=== PATIENT | female | born 1965 | race African-American/Black ===

== ENCOUNTER 2017-04-16 13:46 | Inpatient (IN) | payer BC ==
[2017-04-16 14:37] VITALS: BMI 19.3
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
[2017-04-16] MEDS ORDERED: MAGNESIUM CITRATE 300 ML BOTTLE PO PRN (16:30)
[2017-04-16] MEDS ORDERED: MAGNESIUM HYDROX 2400MG/30ML ORAL SUSPENSION 30 ML CUP PO PRN (16:30)
[2017-04-16] MEDS ORDERED: guaiFENesin/D-METHORPHAN HB 10 ML UNIT-DOSE CUPS PO PRN (16:30)
[2017-04-16] MEDS ORDERED: IBUPROFEN 400 MG TABLET (FP) PO PRN (16:30)
[2017-04-16] MEDS ORDERED: LOPERAMIDE HCL 2 MG CAPSULE PO PRN (16:30)
[2017-04-16] MEDS ORDERED: ACETAMINOPHEN 325 MG TABLET (FP) PO PRN (16:30)
[2017-04-16] MEDS ORDERED: MENTHOL/PHENOL 1 EACH UD MM PRN (16:30)
[2017-04-16] MEDS ORDERED: P-EPHED 60MG/TRIPROLIDI 2.5MG TABLET PO PRN (16:30)
[2017-04-16] MEDS ORDERED: MAG HYDROX/AL HYDROX/SIMETH 30 ML UNIT-DOSE CUP PO PRN (16:30)
[2017-04-16] MEDS ORDERED: ALBUTEROL SO4 2.5/IPRATROPIUM 0.5 INH SOL 3 ML VIAL.NEB. NEB ONE (16:33)
[2017-04-16] MEDS ORDERED: NICOTINE POLACRILEX 2 MG GUM BUC PRN (16:33)
[2017-04-16] MEDS ORDERED: ALBUTEROL SO4 18 GM HFA INHALER IH SCH (16:45)
[2017-04-16] MEDS ORDERED: diazePAM 5 MG TABLET PO ONE (17:30)
[2017-04-16] MEDS: NICOTINE 14 MG/24 HOURS TOPICAL PATCH TD SCH (19:23)
[2017-04-16] MEDS: LIDOCAINE 5% TOPICAL PATCH TP SCH (19:25)
[2017-04-16] MEDS ORDERED: PATIENT'S OWN MEDICATION (NON-FORMULARY) (Ipratropium Bromide [Atrovent Hfa] 12.9 GM) IH SCH (22:00)
[2017-04-16] MEDS: FLUTICASONE PROP 0.05% 16 GM NASAL SPRAY NS SCH (22:14)
[2017-04-16] MEDS: THIAMINE HCL 100 MG TABLET (FP) PO SCH (22:14)
[2017-04-16] MEDS: GABAPENTIN 100 MG CAPSULE (FP) PO SCH (22:14)
[2017-04-16] MEDS: CYCLOBENZAPRINE HCL 10 MG TABLET (FP) PO SCH (22:14)
[2017-04-16] MEDS: diazePAM 5 MG TABLET PO SCH (22:14)
[2017-04-16] MEDS: LIDOCAINE PATCH REMOVAL MC SCH (22:15)
[2017-04-16] MEDS: BUDESONIDE/FORMETEROL FUMARATE 160/4.5 mcg INHALER IH SCH (22:15)
[2017-04-17] MEDS: CYCLOBENZAPRINE HCL 10 MG TABLET (FP) PO SCH ×3 (06:32→22:06)
[2017-04-17] MEDS: diazePAM 5 MG TABLET PO SCH ×3 (06:32→22:08)
[2017-04-17] MEDS: GABAPENTIN 100 MG CAPSULE (FP) PO SCH ×3 (06:32→22:06)
--- NOTE | 2017-04-17 07:43 | CONSULT ---
[facility] Psychiatric Consult - Data Date of interview: 04/17/17 Admission source: [facility] Identifying data: This is 51 years old female with no psychiatric hospitalization history, history of Schizophrenia, intoxicated with: Alcohol, op[ioids, Cocaine and Nicotine Substance Abuse History: - Smoking Cessation. Smoking history: Current every day smoker. Have you smoked in the past 12 months: Yes. Aproximately how many cigarettes per day: 3. Hx Chewing Tobacco Use: No. Initiated information on smoking cessation: Yes. 'Breaking Loose' booklet given: 04/16/17. - Substance & Tx. History. Hx Alcohol Use: Yes. Hx Substance Use: Yes. Substance Use Type : Alcohol, Cocaine, Heroin, Marijuana, Opiates, Prescribed, Tranquilizers. Hx Substance Use Treatment: Yes (detox and rehab a). - Substances Abused. Alcohol. Route: Oral. Frequency: Daily. Amount used: FIFTH OF VODKA. Age of first use: 13. Date of Last Use: 04/16/17. Oxycontin. Route: Oral. Frequency: 1-2 times per week. Amount used: 30 MG. Age of first use: 36. Date of Last Use: 04/13/17. Crack. Route: Smoking. Frequency: Daily. Amount used: $100. Age of first use: 18. Date of Last Use: 04/16/17 Medical History: Weight lost, cachectic, HTN, LBP, GERD, COPD, Psychiatric History: Patient reports taking prior mark admission: Seroquel 25mg po bid,k as per computer carries Paranoid Schozphrenia, denies suicidal history , denies psychiatric hospitalization history Physical/Sexual Abuse/Trauma History: Unclear Additional Comment: Seroquel 25mg po bid Mental Status Exam - Mental Status Exam Alert and Oriented to: Person Cognitive Function: Fair Patient Appearance: Unkempt Mood: Anxious Affect: Constricted Patient Behavior: Guarded Speech Pattern: Delayed Voice Loudness: Mildly Soft/Quiet Thought Process: Circumstantial Thought Disorder: Being Controlled Hallucinations: Denies Suicidal Ideation: Denies Homicidal Ideation: Denies Insight/Judgement: Fair Sleep: Difficulty falling asleep Appetite: Weight loss Muscle strength/Tone: Mild Hypertonicity Gait/Station: Deferred Additional Comments: Seroquel 25mg po bid Psychiatric Findings - Problem List ([place] 1, 2,3) (1) Opioid abuse Current Visit: Yes Status: Acute (2) Drug-induced mood disorder Current Visit: No Status: Acute (3) Alcohol dependence in controlled environment Current Visit: No Status: Chronic (4) Alcohol dependence with uncomplicated withdrawal Current Visit: No Status: Chronic (5) Cocaine dependence Current Visit: No Status: Chronic Qualifiers: Substance use status: uncomplicated Qualified Code(s): F14.20 - Cocaine dependence, uncomplicated (6) Cocaine dependence, uncomplicated Current Visit: No Status: Chronic (7) Nicotine dependence Current Visit: No Status: Chronic Qualifiers: Nicotine product type: cigarettes Substance use status: uncomplicated Qualified Code(s): F17.210 - Nicotine dependence, cigarettes, uncomplicated (8) Opiate dependence Current Visit: No Status: Chronic Qualifiers: Substance use status: uncomplicated Qualified Code(s): F11.20 - Opioid dependence, uncomplicated (9) Schizophrenia Current Visit: No Status: Chronic - Initial Treatment Plan Initial Treatment Plan: Seroquel 25mg po bid
[2017-04-17] MEDS ORDERED: TIOTROPIUM BROMIDE 18 MCG/INH (DEVICE W/ 5 CAPSULES) IH SCH (10:00)
[2017-04-17] MEDS: LIDOCAINE 5% TOPICAL PATCH TP SCH (10:00)
[2017-04-17] MEDS: QUEtiapine FUMARATE 25 MG TABLET (FP) PO SCH ×2 (10:07→22:06)
[2017-04-17] MEDS: PRENATAL VITAMINS W/ FOLIC ACID TABLET (FP) PO SCH (10:07)
[2017-04-17] MEDS: RANITIDINE HCL 150 MG TABLET (FP) PO SCH (10:07)
[2017-04-17] MEDS: FLUTICASONE PROP 0.05% 16 GM NASAL SPRAY NS SCH ×2 (10:07→22:05)
[2017-04-17] MEDS: amLODIPine BESYLATE 5 MG TABLET (FP) PO SCH (10:07)
[2017-04-17] MEDS: NICOTINE 14 MG/24 HOURS TOPICAL PATCH TD SCH (10:08)
[2017-04-17] MEDS: BUDESONIDE/FORMETEROL FUMARATE 160/4.5 mcg INHALER IH SCH ×2 (10:08→22:06)
--- NOTE | 2017-04-17 10:32 | EKG ---
Test Reason : Blood Pressure : / mmHG Vent. Rate : 092 BPM Atrial Rate : 092 BPM P-R Int : 144 ms QRS Dur : 094 ms QT Int : 390 ms P-R-T Axes : 075 060 109 degrees QTc Int : 482 ms NORMAL SINUS RHYTHM POSSIBLE LEFT ATRIAL ENLARGEMENT LEFT VENTRICULAR HYPERTROPHY WITH REPOLARIZATION ABNORMALITY PROLONGED QT ABNORMAL ECG NO PREVIOUS ECGS AVAILABLE Confirmed by ASTER MONTOYA MD ([id number]) on 04/17/2017 10:31:49 AM Referred By: Idania García Confirmed By:ASTER MONTOYA MD
[2017-04-17 11:08] LABS: MCH 31.6 pg (25.7-33.7); MCHC 32.8 g/dl (32.0-36.0); MEAN CELL VOLUME 96.4 fl (80-96); MEAN PLT VOLUME 8.7 fl (7.5-11.1); PLATELET COUNT 245 K/MM3 (134-434); RDW 14.1 % (11.6-15.6); WHITE BLOOD COUNT 9.4 K/mm3 (4.0-10.0)
[2017-04-17 11:41] LABS: ALBUMIN 3.7 g/dl (3.4-5.0); ALK PHOS 56 U/L (45-117); ANION GAP 8 (8-16); BILIRUBIN,TOTAL 0.6 mg/dL (0.2-1.0); CALCIUM 9.1 mg/dL (8.5-10.1); CO2 27 mmol/L (21-32); CREATININE 1.3 mg/dL (0.55-1.02); GLUCOSE,RANDOM 72 mg/dL (74-106); SGOT/AST 15 U/L (15-37); SGPT/ALT 26 U/L (12-78); TOT PROT 7.2 g/dl (6.4-8.2)
[2017-04-17 17:20] LABS: URINE APPEARANCE CLEAR; URINE BILIRUBIN NEGATIVE (NEGATIVE); URINE BLOOD NEGATIVE (NEGATIVE); URINE COLOR YELLOW; URINE GLUCOSE (UA) NEGATIVE (NEGATIVE); URINE KETONE NEGATIVE (NEGATIVE); URINE LEUK ESTERASE NEGATIVE (NEGATIVE); URINE NITRITE NEGATIVE (NEGATIVE); URINE PROTEIN NEGATIVE (NEGATIVE); URINE UROBILINOGEN NEGATIVE mg/dL (0.2-1.0)
--- NOTE | 2017-04-17 17:38 | PN ---
S CIWA - CIWA Score Nausea/Vomitin Muscle Tremors: 3 Anxiety: 3 Agitation: 3 Paroxysmal Sweats: 3 Orientation: 0-Oriented Tacttile Disturbances: 1-Very Mild Itch/Numbness Auditory Disturbances: 0-None Visual Disturbances: 0-None Headache: 1-Very Mild CIWA-Ar Total Score: 17 S Progress Note (SOAP) Subjective: nausea, sweats, interrupted sleep, anxiety, tremors Objective: 04/17/17 17:37 Vital Signs - 24 hr 04/16/17 04/16/17 04/17/17 19:19 22:48 00:30 Temperature 98.1 F 99.9 F H Pulse Rate 100 H 100 H Respiratory 18 20 18 Rate Blood Pressure 120/75 135/73 04/17/17 04/17/17 04/17/17 03:30 06:08 10:02 Temperature 97.5 F L 97.7 F Pulse Rate 75 86 Respiratory 18 18 18 Rate Blood Pressure 140/76 127/78 04/17/17 15:16 Temperature 97.3 F L Pulse Rate 108 H Respiratory 18 Rate Blood Pressure 126/68 Laboratory Tests 04/17/17 04/17/17 04/17/17 06:00 06:00 11:30 WBC 9.4 RBC 4.55 Hgb 14.4 Hct 43.9 MCV 96.4 H MCH 31.6 MCHC 32.8 RDW 14.1 Plt Count 245 MPV 8.7 Sodium 141 Potassium 3.6 Chloride 106 Carbon Dioxide 27 Anion Gap 8 BUN 19 H Creatinine 1.3 H D Creat Clearance w eGFR 43.36 Random Glucose 72 L Calcium 9.1 Total Bilirubin 0.6 D AST 15 ALT 26 Alkaline Phosphatase 56 D Total Protein 7.2 Albumin 3.7 Urine Color Yellow Urine Appearance Clear Urine pH 6.0 Ur Specific [place] 1.023 Urine Protein Negative Urine Glucose (UA) Negative Urine Ketones Negative Urine Blood Negative Urine Nitrite Negative Urine Bilirubin Negative Urine Urobilinogen Negative Assessment: 04/17/17 17:37 withdrawwal sx, cton detox, fluids, encourage ambulation
[2017-04-17 19:29] LABS: URINE LEUK ESTERASE Negative (NEGATIVE)
[2017-04-17] MEDS: ALBUTEROL SO4 2.5/IPRATROPIUM 0.5 INH SOL 3 ML VIAL.NEB. NEB PRN (21:33)
[2017-04-17] MEDS: THIAMINE HCL 100 MG TABLET (FP) PO SCH (22:06)
[2017-04-17] MEDS: LIDOCAINE PATCH REMOVAL MC SCH (22:44)
[2017-04-18] MEDS: diazePAM 5 MG TABLET PO PRN ×2 (05:21→14:00)
[2017-04-18] MEDS: CYCLOBENZAPRINE HCL 10 MG TABLET (FP) PO SCH ×3 (05:21→22:12)
[2017-04-18] MEDS: GABAPENTIN 100 MG CAPSULE (FP) PO SCH ×3 (05:21→22:11)
[2017-04-18] MEDS ORDERED: hydrOXYzine PAMOATE 25 MG CAPSULE (FP) PO ONE (09:11)
[2017-04-18] MEDS: diazePAM 5 MG TABLET PO SCH ×2 (09:15→22:11)
[2017-04-18] MEDS: RANITIDINE HCL 150 MG TABLET (FP) PO SCH (10:04)
[2017-04-18] MEDS: amLODIPine BESYLATE 5 MG TABLET (FP) PO SCH (10:04)
[2017-04-18] MEDS: PRENATAL VITAMINS W/ FOLIC ACID TABLET (FP) PO SCH (10:04)
[2017-04-18] MEDS: LIDOCAINE 5% TOPICAL PATCH TP SCH (10:05)
[2017-04-18] MEDS: FLUTICASONE PROP 0.05% 16 GM NASAL SPRAY NS SCH ×2 (10:05→22:12)
[2017-04-18] MEDS: NICOTINE 14 MG/24 HOURS TOPICAL PATCH TD SCH (10:05)
[2017-04-18] MEDS: QUEtiapine FUMARATE 25 MG TABLET (FP) PO SCH ×2 (10:05→22:11)
[2017-04-18] MEDS: BUDESONIDE/FORMETEROL FUMARATE 160/4.5 mcg INHALER IH SCH ×2 (10:06→22:12)
--- NOTE | 2017-04-18 11:44 | PN ---
[facility] CIWA - CIWA Score Nausea/Vomitin-No Nausea/No Vomiting Muscle Tremors: 4-Moderate,w/Arms Extend Anxiety: 4-Mod. Anxious/Guarded Agitation: 4-Moderately Restless Paroxysmal Sweats: 3 Orientation: 0-Oriented Tacttile Disturbances: 0-None Auditory Disturbances: 0-None Visual Disturbances: 0-None Headache: 2-Mild CIWA-Ar Total Score: 17 S Progress Note (SOAP) Subjective: tremors, diarrhea x 3, agitation, interrupted sleep, anxiety, body aches Objective: 04/18/17 11:46 Vital Signs Temperature 97.0 F L 04/18/17 09:34 Pulse Rate 90 04/18/17 09:34 Respiratory Rate 16 04/18/17 09:34 Blood Pressure 116/83 04/18/17 09:34 O2 Sat by Pulse Oximetry (%) Laboratory Last Values WBC 9.4 K/mm3 (4.0-10.0) 04/17/17 06:00 RBC 4.55 M/mm3 (3.60-5.2) 04/17/17 06:00 Hgb 14.4 GM/dL (10.7-15.3) 04/17/17 06:00 Hct 43.9 % (32.4-45.2) 04/17/17 06:00 MCV 96.4 fl (80-96) H 04/17/17 06:00 MCH 31.6 pg (25.7-33.7) 04/17/17 06:00 MCHC 32.8 g/dl (32.0-36.0) 04/17/17 06:00 RDW 14.1 % (11.6-15.6) 04/17/17 06:00 Plt Count 245 K/MM3 (134-434) 04/17/17 06:00 MPV 8.7 fl (7.5-11.1) 04/17/17 06:00 Sodium 141 mmol/L (136-145) 04/17/17 06:00 Potassium 3.6 mmol/L (3.5-5.1) 04/17/17 06:00 Chloride 106 mmol/L (98-107) 04/17/17 06:00 Carbon Dioxide 27 mmol/L (21-32) 04/17/17 06:00 Anion Gap 8 (8-16) 04/17/17 06:00 BUN 19 mg/dL (7-18) H 04/17/17 06:00 Creatinine 1.3 mg/dL (0.55-1.02) H D 04/17/17 06:00 Creat Clearance w eGFR 43.36 (>60) 04/17/17 06:00 Random Glucose 72 mg/dL (74-106) L 04/17/17 06:00 Calcium 9.1 mg/dL (8.5-10.1) 04/17/17 06:00 Total Bilirubin 0.6 mg/dL (0.2-1.0) D 04/17/17 06:00 AST 15 U/L (15-37) 04/17/17 06:00 ALT 26 U/L (12-78) 04/17/17 06:00 Alkaline Phosphatase 56 U/L (45-117) D 04/17/17 06:00 Total Protein 7.2 g/dl (6.4-8.2) 04/17/17 06:00 Albumin 3.7 g/dl (3.4-5.0) 04/17/17 06:00 Urine Color Yellow 04/17/17 11:30 Urine Appearance Clear 04/17/17 11:30 Urine pH 6.0 (5.0-8.0) 04/17/17 11:30 Ur Specific [place] 1.023 (1.001-1.035) 04/17/17 11:30 Urine Protein Negative (NEGATIVE) 04/17/17 11:30 Urine Glucose (UA) Negative (NEGATIVE) 04/17/17 11:30 Urine Ketones Negative (NEGATIVE) 04/17/17 11:30 Urine Blood Negative (NEGATIVE) 04/17/17 11:30 Urine Nitrite Negative (NEGATIVE) 04/17/17 11:30 Urine Bilirubin Negative (NEGATIVE) 04/17/17 11:30 Urine Urobilinogen Negative mg/dL (0.2-1.0) 04/17/17 11:30 Ur Leukocyte Esterase Negative (NEGATIVE) 04/17/17 11:30 RPR Titer Nonreactive (NONREACTIVE) 04/17/17 06:00 labs reviewed. fluid hydration encouraged Assessment: 04/18/17 11:47 Withdrawal symptoms Plan: Continue detox
[2017-04-18] MEDS: ALBUTEROL SO4 2.5/IPRATROPIUM 0.5 INH SOL 3 ML VIAL.NEB. NEB PRN (20:40)
[2017-04-18] MEDS: THIAMINE HCL 100 MG TABLET (FP) PO SCH (22:11)
[2017-04-18] MEDS: LIDOCAINE PATCH REMOVAL MC SCH (22:12)
[2017-04-19] MEDS: GABAPENTIN 100 MG CAPSULE (FP) PO SCH ×3 (06:20→21:39)
[2017-04-19] MEDS: CYCLOBENZAPRINE HCL 10 MG TABLET (FP) PO SCH ×3 (06:20→21:39)
[2017-04-19] MEDS: diazePAM 5 MG TABLET PO PRN ×2 (06:21→14:54)
[2017-04-19] MEDS: ALBUTEROL SO4 2.5/IPRATROPIUM 0.5 INH SOL 3 ML VIAL.NEB. NEB PRN (06:45)
[2017-04-19] MEDS ORDERED: ALBUTEROL SO4 2.5/IPRATROPIUM 0.5 INH SOL 3 ML VIAL.NEB. NEB PRN (09:54)
--- NOTE | 2017-04-19 09:58 | PN ---
B[facility] Progress Note (SOAP) Subjective: Sweating,interrupted sleep,restless Objective: 04/19/17 09:57 Vital Signs - 8 hr 04/19/17 04/19/17 03:30 06:00 Temperature 97.5 F L Pulse Rate 80 Respiratory 18 16 Rate Blood Pressure 120/76 Laboratory Tests 04/17/17 04/17/17 04/17/17 06:00 06:00 06:00 WBC 9.4 RBC 4.55 Hgb 14.4 Hct 43.9 MCV 96.4 H MCH 31.6 MCHC 32.8 RDW 14.1 Plt Count 245 MPV 8.7 Sodium 141 Potassium 3.6 Chloride 106 Carbon Dioxide 27 Anion Gap 8 BUN 19 H Creatinine 1.3 H D Creat Clearance w eGFR 43.36 Random Glucose 72 L Calcium 9.1 Total Bilirubin 0.6 D AST 15 ALT 26 Alkaline Phosphatase 56 D Total Protein 7.2 Albumin 3.7 Urine Color Urine Appearance Urine pH Ur Specific [place] Urine Protein Urine Glucose (UA) Urine Ketones Urine Blood Urine Nitrite Urine Bilirubin Urine Urobilinogen Ur Leukocyte Esterase RPR Titer Nonreactive 04/17/17 11:30 WBC RBC Hgb Hct MCV MCH MCHC RDW Plt Count MPV Sodium Potassium Chloride Carbon Dioxide Anion Gap BUN Creatinine Creat Clearance w eGFR Random Glucose Calcium Total Bilirubin AST ALT Alkaline Phosphatase Total Protein Albumin Urine Color Yellow Urine Appearance Clear Urine pH 6.0 Ur Specific [place] 1.023 Urine Protein Negative Urine Glucose (UA) Negative Urine Ketones Negative Urine Blood Negative Urine Nitrite Negative Urine Bilirubin Negative Urine Urobilinogen Negative Ur Leukocyte Esterase Negative RPR Titer labs noted Assessment: 04/19/17 09:57 Withdrawal sx. Plan: Continue detox
[2017-04-19] MEDS: amLODIPine BESYLATE 5 MG TABLET (FP) PO SCH (10:11)
[2017-04-19] MEDS: RANITIDINE HCL 150 MG TABLET (FP) PO SCH (10:11)
[2017-04-19] MEDS: PRENATAL VITAMINS W/ FOLIC ACID TABLET (FP) PO SCH (10:11)
[2017-04-19] MEDS: NICOTINE 14 MG/24 HOURS TOPICAL PATCH TD SCH (10:11)
[2017-04-19] MEDS: diazePAM 5 MG TABLET PO SCH ×2 (10:11→21:40)
[2017-04-19] MEDS: QUEtiapine FUMARATE 25 MG TABLET (FP) PO SCH ×2 (10:11→21:39)
[2017-04-19] MEDS: BUDESONIDE/FORMETEROL FUMARATE 160/4.5 mcg INHALER IH SCH ×2 (10:12→21:41)
[2017-04-19] MEDS: FLUTICASONE PROP 0.05% 16 GM NASAL SPRAY NS SCH ×2 (10:12→21:42)
[2017-04-19] MEDS: ALBUTEROL SO4 2.5/IPRATROPIUM 0.5 INH SOL 3 ML VIAL.NEB. NEB SCH ×4 (11:31→21:43)
[2017-04-19] MEDS: LIDOCAINE 5% TOPICAL PATCH TP SCH (11:32)
[2017-04-19] MEDS: THIAMINE HCL 100 MG TABLET (FP) PO SCH (21:39)
[2017-04-19] MEDS: LIDOCAINE PATCH REMOVAL MC SCH (21:42)
[2017-04-19] MEDS ORDERED: IBUPROFEN 400 MG TABLET (FP) PO PRN (22:12)
[2017-04-20] MEDS: GABAPENTIN 100 MG CAPSULE (FP) PO SCH (07:05)
[2017-04-20] MEDS: CYCLOBENZAPRINE HCL 10 MG TABLET (FP) PO SCH (07:05)
[2017-04-20] MEDS: BUDESONIDE/FORMETEROL FUMARATE 160/4.5 mcg INHALER IH SCH (09:53)
[2017-04-20] MEDS: ALBUTEROL SO4 2.5/IPRATROPIUM 0.5 INH SOL 3 ML VIAL.NEB. NEB SCH (09:54)
[2017-04-20] MEDS ORDERED: diazePAM 5 MG TABLET PO SCH (10:00)
[2017-04-20] MEDS ORDERED: METHYL SALICYLATE/MENTHOL OINT 30 GM TUBE TP SCH (10:00)
[2017-04-20 10:21] VITALS: BP 143/79; PULSE 109; TEMP 97.9
[2017-04-20] MEDS: QUEtiapine FUMARATE 25 MG TABLET (FP) PO SCH (10:28)
[2017-04-20] MEDS: RANITIDINE HCL 150 MG TABLET (FP) PO SCH (10:28)
[2017-04-20] MEDS: PRENATAL VITAMINS W/ FOLIC ACID TABLET (FP) PO SCH (10:28)
[2017-04-20] MEDS: amLODIPine BESYLATE 5 MG TABLET (FP) PO SCH (10:28)
[2017-04-20] MEDS: FLUTICASONE PROP 0.05% 16 GM NASAL SPRAY NS SCH (10:30)
[2017-04-20] MEDS: LIDOCAINE 5% TOPICAL PATCH TP SCH (10:30)
[2017-04-20] MEDS: NICOTINE 14 MG/24 HOURS TOPICAL PATCH TD SCH (10:31)
--- NOTE | 2017-04-20 12:52 | DS ---
[facility] Detox Discharge Summary Admission Date: 04/16/17 Discharge Date: 04/20/17 - History Present History: Alcohol Dependence Pertinent Past History: COPD GERD - Physical Exam Results Vital Signs: Vital Signs Temperature 97.9 F 04/20/17 10:00 Pulse Rate 109 H 04/20/17 10:00 Respiratory Rate 16 04/20/17 10:00 Blood Pressure 143/79 04/20/17 10:00 O2 Sat by Pulse Oximetry (%) Pertinent Admission Physical Exam Findings: Withdrawal sx. Laboratory Tests 04/17/17 04/17/17 04/17/17 06:00 06:00 06:00 WBC 9.4 RBC 4.55 Hgb 14.4 Hct 43.9 MCV 96.4 H MCH 31.6 MCHC 32.8 RDW 14.1 Plt Count 245 MPV 8.7 Sodium 141 Potassium 3.6 Chloride 106 Carbon Dioxide 27 Anion Gap 8 BUN 19 H Creatinine 1.3 H D Creat Clearance w eGFR 43.36 Random Glucose 72 L Calcium 9.1 Total Bilirubin 0.6 D AST 15 ALT 26 Alkaline Phosphatase 56 D Total Protein 7.2 Albumin 3.7 Urine Color Urine Appearance Urine pH Ur Specific [place] Urine Protein Urine Glucose (UA) Urine Ketones Urine Blood Urine Nitrite Urine Bilirubin Urine Urobilinogen Ur Leukocyte Esterase RPR Titer Nonreactive 04/17/17 11:30 WBC RBC Hgb Hct MCV MCH MCHC RDW Plt Count MPV Sodium Potassium Chloride Carbon Dioxide Anion Gap BUN Creatinine Creat Clearance w eGFR Random Glucose Calcium Total Bilirubin AST ALT Alkaline Phosphatase Total Protein Albumin Urine Color Yellow Urine Appearance Clear Urine pH 6.0 Ur Specific [place] 1.023 Urine Protein Negative Urine Glucose (UA) Negative Urine Ketones Negative Urine Blood Negative Urine Nitrite Negative Urine Bilirubin Negative Urine Urobilinogen Negative Ur Leukocyte Esterase Negative RPR Titer labs noted - Treatment Hospital Course: Detox Protocol Followed, Detoxed Safely, Responded well, Discharged Condition Good, Rehab Referral Accepted Patient has Accepted a Rehab Referral to: [facility] - Medication Discharge Medications: Ambulatory Orders Ranitidine HCl [Heartburn Relief] 150 mg PO DAILY 12/31/15 Fluticasone Prop 0.05% Nasal [Flonase -] 1 - 2 spray NS BID 01/13/16 Tiotropium [place] [Spiriva] 1 inh PO DAILY 01/13/16 Quetiapine Fumarate [Seroquel -] 25 mg PO BID #60 tablet 04/17/17 Albuterol Sulfate Inhaler - [Ventolin HFA Inhaler -] 2 inh PO PRN #1 inhaler 12/27 Amlodipine Besylate [Norvasc -] 5 mg PO DAILY #30 tablet 04/19/17 Gabapentin [Neurontin -] 100 mg PO BID #60 capsule 04/19/17 Ipratropium [place] [Atrovent Hfa] 12.9 gm IH BID #1 [email or web address] 04/19/17 Mometasone/Formoterol [Dulera 200 Mcg/5 Mcg Inhaler] 2 inh IH BID #1 hfa.[email or web address] 04/19/17 Ranitidine [Zantac -] 150 mg PO DAILY #30 tablet 04/19/17 - Diagnosis (1) Drug-induced mood disorder Status: Acute (2) Alcohol dependence with uncomplicated withdrawal Status: Chronic (3) COPD (chronic obstructive pulmonary disease) Status: Chronic Qualifiers: COPD type: emphysema Emphysema type: other Qualified Code(s): J43.8 - Other emphysema (4) GERD (gastroesophageal reflux disease) Status: Chronic Qualifiers: Esophagitis presence: without esophagitis Qualified Code(s): K21.9 - Gastro -esophageal reflux disease without esophagitis - AMA Did Patient Leave Against Medical Advice: No
== END 2017-04-20 11:45 | disposition other institution (70) | DRG 773 ==
LOC: YASAS 13:46 → Y6N 17:03
PROVIDERS: ADMIT Internal Medicine; ATTEND Internal Medicine
PROC: HZ2ZZZZ Detoxification Services for Substance Abuse Treatment (ICD-10-PCS; principal; 2017-04-16)
DX: F11.23 Opioid dependence with withdrawal (principal); F10.230 Alcohol dependence with withdrawal, uncomplicated; F14.20 Cocaine dependence, uncomplicated; F17.210 Nicotine dependence, cigarettes, uncomplicated; F19.24 Other psychoactive substance dependence with psychoactive substance-induced mood disorder; F20.9 Schizophrenia, unspecified; J43.8 Other emphysema; K21.9 Gastro-esophageal reflux disease without esophagitis
CPT/HCPCS: 36415; 80053; 81003; 85027; 86593; 93005; 93010; 94640

== ENCOUNTER 2017-04-20 11:57 | Inpatient (IN) | payer BC ==
[2017-04-20] MEDS ORDERED: guaiFENesin/D-METHORPHAN HB 10 ML UNIT-DOSE CUPS PO PRN (16:14)
[2017-04-20] MEDS ORDERED: P-EPHED 60MG/TRIPROLIDI 2.5MG TABLET PO PRN (16:14)
[2017-04-20] MEDS ORDERED: MAGNESIUM HYDROX 2400MG/30ML ORAL SUSPENSION 30 ML CUP PO PRN (16:14)
[2017-04-20] MEDS ORDERED: LOPERAMIDE HCL 2 MG CAPSULE PO PRN (16:14)
[2017-04-20] MEDS ORDERED: MENTHOL/PHENOL 1 EACH UD MM PRN (16:14)
[2017-04-20] MEDS ORDERED: MAGNESIUM CITRATE 300 ML BOTTLE PO PRN (16:14)
[2017-04-20] MEDS ORDERED: MAG HYDROX/AL HYDROX/SIMETH 30 ML UNIT-DOSE CUP PO PRN (16:14)
--- NOTE | 2017-04-20 16:14 | HP ---
[facility] Rehab Assess/Revision - Admission History Admitted to Rehab from: [facility] [place] Date of Admission to Rehab: 04/20/17 - Vital signs Vital Signs: Last Vital Signs Temp Pulse Resp BP Pulse Ox 97.8 F 76 20 115/72 04/20/17 16:15 04/20/17 16:15 04/20/17 16:15 04/20/17 16:15 - Findings Detox History & Physical reviewed: Yes Concur with findings: Yes Inpatient Rehab Admission - Initial Determination Are CD services needed?: Yes Free of communicable disease: Yes Not in need of hospitalization: Yes - Rehab Admission Criteria Previous failed treatment: Yes Poor recovery environment: Yes Comorbidities: Yes Lacks judgement: Yes Patient is meeting Inpatient Rehab admission criteria:: Yes
[2017-04-20] MEDS ORDERED: ALBUTEROL SO4 18 GM HFA INHALER IH SCH (17:15)
[2017-04-20] MEDS: ALBUTEROL SO4 2.5/IPRATROPIUM 0.5 INH SOL 3 ML VIAL.NEB. NEB SCH ×2 (19:00→21:39)
[2017-04-20] MEDS: GABAPENTIN 100 MG CAPSULE (FP) PO SCH (21:41)
[2017-04-20] MEDS: THIAMINE HCL 100 MG TABLET (FP) PO SCH (21:41)
[2017-04-20] MEDS ORDERED: QUEtiapine FUMARATE 100 MG TABLET (FP) PO SCH (22:00)
[2017-04-20] MEDS: QUEtiapine FUMARATE 25 MG TABLET (FP) PO SCH (22:18)
[2017-04-20] MEDS: BUDESONIDE/FORMETEROL FUMARATE 160/4.5 mcg INHALER IH SCH (22:18)
[2017-04-21] MEDS: IBUPROFEN 400 MG TABLET (FP) PO PRN (00:27)
[2017-04-21] MEDS: ALBUTEROL SO4 2.5/IPRATROPIUM 0.5 INH SOL 3 ML VIAL.NEB. NEB PRN (08:45)
[2017-04-21] MEDS: BUDESONIDE/FORMETEROL FUMARATE 160/4.5 mcg INHALER IH SCH ×2 (09:58→21:36)
[2017-04-21] MEDS: RANITIDINE HCL 150 MG TABLET (FP) PO SCH (09:58)
[2017-04-21] MEDS: GABAPENTIN 100 MG CAPSULE (FP) PO SCH ×2 (09:58→21:36)
[2017-04-21] MEDS: QUEtiapine FUMARATE 25 MG TABLET (FP) PO SCH ×2 (09:58→21:37)
[2017-04-21] MEDS: ALBUTEROL SO4 2.5/IPRATROPIUM 0.5 INH SOL 3 ML VIAL.NEB. NEB SCH ×4 (09:59→21:37)
[2017-04-21] MEDS: NICOTINE 21 MG/24 HOURS TOPICAL PATCH TD SCH (09:59)
[2017-04-21] MEDS: PRENATAL VITAMINS W/ FOLIC ACID TABLET (FP) PO SCH (10:00)
[2017-04-21] MEDS: amLODIPine BESYLATE 5 MG TABLET (FP) PO SCH (10:00)
[2017-04-21] MEDS: ACETAMINOPHEN 325 MG TABLET (FP) PO PRN ×2 (14:12→21:39)
[2017-04-21] MEDS: TIOTROPIUM BROMIDE 18 MCG/INH (DEVICE W/ 5 CAPSULES) IH SCH (15:53)
[2017-04-21] MEDS: THIAMINE HCL 100 MG TABLET (FP) PO SCH (21:38)
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
[2017-04-22] MEDS: ALBUTEROL SO4 2.5/IPRATROPIUM 0.5 INH SOL 3 ML VIAL.NEB. NEB PRN (08:44)
[2017-04-22] MEDS: ALBUTEROL SO4 2.5/IPRATROPIUM 0.5 INH SOL 3 ML VIAL.NEB. NEB SCH (10:03)
[2017-04-22] MEDS: NICOTINE 21 MG/24 HOURS TOPICAL PATCH TD SCH (10:08)
[2017-04-22] MEDS: amLODIPine BESYLATE 5 MG TABLET (FP) PO SCH (10:08)
[2017-04-22] MEDS: GABAPENTIN 100 MG CAPSULE (FP) PO SCH ×2 (10:08→21:26)
[2017-04-22] MEDS: RANITIDINE HCL 150 MG TABLET (FP) PO SCH (10:08)
[2017-04-22] MEDS: TIOTROPIUM BROMIDE 18 MCG/INH (DEVICE W/ 5 CAPSULES) IH SCH (10:08)
[2017-04-22] MEDS: PRENATAL VITAMINS W/ FOLIC ACID TABLET (FP) PO SCH (10:08)
[2017-04-22] MEDS: BUDESONIDE/FORMETEROL FUMARATE 160/4.5 mcg INHALER IH SCH ×2 (10:09→21:26)
--- NOTE | 2017-04-22 15:56 | PN ---
BHS Progress Note (SOAP) Subjective: c/o thirst requesting water at bedside Objective: 04/22/17 15:55 Vital Signs - 24 hr 04/22/17 04/22/17 04/22/17 00:30 03:30 06:00 Temperature 98.3 F Pulse Rate 84 Respiratory 16 16 18 Rate Blood Pressure 143/85 04/22/17 09:30 Temperature Pulse Rate 96 H Respiratory Rate Blood Pressure 116/72 labs reveiwed with patient indicate dehydration Assessment: 04/22/17 15:55 dehydration 2/2 substance use pitcher ordered to be placed at bedside.
[2017-04-22] MEDS: THIAMINE HCL 100 MG TABLET (FP) PO SCH (21:26)
[2017-04-22] MEDS: QUEtiapine FUMARATE 50 MG TABLET PO SCH (21:27)
[2017-04-23] MEDS: ALBUTEROL SO4 2.5/IPRATROPIUM 0.5 INH SOL 3 ML VIAL.NEB. NEB PRN (07:13)
[2017-04-23] MEDS: BUDESONIDE/FORMETEROL FUMARATE 160/4.5 mcg INHALER IH SCH ×2 (10:04→22:03)
[2017-04-23] MEDS: RANITIDINE HCL 150 MG TABLET (FP) PO SCH (10:04)
[2017-04-23] MEDS: PRENATAL VITAMINS W/ FOLIC ACID TABLET (FP) PO SCH (10:04)
[2017-04-23] MEDS: GABAPENTIN 100 MG CAPSULE (FP) PO SCH ×2 (10:04→21:30)
[2017-04-23] MEDS: TIOTROPIUM BROMIDE 18 MCG/INH (DEVICE W/ 5 CAPSULES) IH SCH (10:05)
[2017-04-23] MEDS: amLODIPine BESYLATE 5 MG TABLET (FP) PO SCH (10:06)
[2017-04-23] MEDS: LIDOCAINE 5% TOPICAL PATCH TP SCH (10:06)
[2017-04-23] MEDS: NICOTINE 21 MG/24 HOURS TOPICAL PATCH TD SCH (10:06)
[2017-04-23] MEDS: ALBUTEROL SO4 2.5/IPRATROPIUM 0.5 INH SOL 3 ML VIAL.NEB. NEB SCH ×4 (10:07→21:30)
[2017-04-23] MEDS: THIAMINE HCL 100 MG TABLET (FP) PO SCH (21:30)
[2017-04-23] MEDS: QUEtiapine FUMARATE 50 MG TABLET PO SCH (21:30)
[2017-04-23] MEDS: LIDOCAINE PATCH REMOVAL MC SCH (21:31)
[2017-04-24] MEDS: ALBUTEROL SO4 2.5/IPRATROPIUM 0.5 INH SOL 3 ML VIAL.NEB. NEB PRN (07:08)
[2017-04-24] MEDS: NICOTINE 21 MG/24 HOURS TOPICAL PATCH TD SCH (10:13)
[2017-04-24] MEDS: amLODIPine BESYLATE 5 MG TABLET (FP) PO SCH (10:13)
[2017-04-24] MEDS: GABAPENTIN 100 MG CAPSULE (FP) PO SCH ×2 (10:13→21:30)
[2017-04-24] MEDS: LIDOCAINE 5% TOPICAL PATCH TP SCH (10:13)
[2017-04-24] MEDS: ALBUTEROL SO4 2.5/IPRATROPIUM 0.5 INH SOL 3 ML VIAL.NEB. NEB SCH ×5 (10:13→21:31)
[2017-04-24] MEDS: RANITIDINE HCL 150 MG TABLET (FP) PO SCH (10:13)
[2017-04-24] MEDS: PRENATAL VITAMINS W/ FOLIC ACID TABLET (FP) PO SCH (10:13)
[2017-04-24] MEDS: BUDESONIDE/FORMETEROL FUMARATE 160/4.5 mcg INHALER IH SCH ×2 (10:14→21:30)
[2017-04-24] MEDS: TIOTROPIUM BROMIDE 18 MCG/INH (DEVICE W/ 5 CAPSULES) IH SCH (10:14)
--- NOTE | 2017-04-24 11:15 | PN ---
Psychiatric Progress Note Vital Signs: Vital Signs Period Temp Pulse Resp BP Sys/Avila Pulse Ox Last 24 Hr 96.7 F 86-95 18-18 127-137/71-89 Date of Session: 04/24/17 Chief Complaint:: "I've been feeling anxious: HPI: Patient addressing Alcohol and Cocaine Dependence, Opoid Abuse comorbid with Nicotine Dependence, Paranoid Schizophrenia and Substance-induced Sleep Disorder ROS: Anemia, Asthma/COPD, GERD, HTN, chronic low back pain Current Medications: Active Medications Generic Name Dose Route Start Last Admin Trade Name Freq PRN Reason Stop Dose Admin Acetaminophen 650 mg 04/20/17 16:14 04/21/17 21:39 Tylenol - PO 650 mg Q4H PRN Administration FEVER OR PAIN Al Hydroxide/Mg Hydroxide 30 ml 04/20/17 16:14 Mylanta Oral Suspension - PO Q6H PRN DYSPEPSIA Albuterol Sulfate 2 puff 04/20/17 17:15 Ventolin Hfa Inhaler - IH PRN UDAY Albuterol/Ipratropium 1 amp 04/20/17 18:00 04/24/17 10:53 Duoneb - NEB 1 amp QID UDAY Administration Albuterol/Ipratropium 1 amp 04/20/17 17:17 04/24/17 07:08 Duoneb - NEB 1 amp Q4H PRN Administration SHORTNESS OF BREATH Amlodipine Besylate 5 mg 04/21/17 10:00 04/24/17 10:13 Norvasc - PO 5 mg DAILY UDYA Administration Budesonide/Formoterol Fumarate 1 puff 04/20/17 22:00 04/24/17 10:14 Symbicort 160/4.5mcg - IH 1 puff BID UDAY Administration Eucalyptus/Menthol/Phenol/Sorbitol 1 each 04/20/17 16:14 Cepastat Lozenge - MM Q4H PRN SORE THROAT Gabapentin 100 mg 04/20/17 22:00 04/24/17 10:13 Neurontin - PO 100 mg BID UDAY Administration Guaifenesin 10 ml 04/20/17 16:14 Robitussin Dm - PO Q6H PRN COUGH Hydroxyzine Pamoate 50 mg 04/24/17 11:10 Vistaril - PO Q4H PRN ANXIETY Ibuprofen 400 mg 04/20/17 16:14 04/21/17 00:27 Motrin - PO 400 mg Q6H PRN Administration PAIN Lidocaine 1 patch 04/23/17 10:00 04/24/17 10:13 Lidoderm Patch - TP 1 patch DAILY UDAY Administration Loperamide HCl 4 mg 04/20/17 16:14 Imodium - PO Q6H PRN DIARRHEA Magnesium Citrate 300 ml 04/20/17 16:14 Citroma - PO Q48H PRN CONSTIPATION Magnesium Hydroxide 30 ml 04/20/17 16:14 Milk Of Magnesia - PO DAILY PRN CONSTIPATION Miscellaneous 1 each 04/23/17 22:00 04/23/17 21:31 Lidoderm Patch Removal MC 1 each DAILY@2200 UDAY Administration Nicotine 14 mg 04/21/17 10:00 04/24/17 10:13 Nicoderm Patch - TD 14 mg DAILY UDAY Administration Nicotine Polacrilex 2 mg 04/20/17 16:14 Nicorette Gum - BUC Q2H PRN NICOTINE REPLACEMENT RX Multivit/Folic Acid/Iron 1 tab 04/21/17 10:00 04/24/17 10:13 Vitamins (Sjr) - PO 1 tab DAILY UDAY Administration Pseudoephedrine/Triprolidine 1 combo 04/20/17 16:14 Actifed - PO TID PRN NASAL CONGESTION Quetiapine Fumarate 150 mg 04/22/17 22:00 04/23/17 21:30 Seroquel - PO 150 mg HS UDAY Administration Ranitidine HCl 150 mg 04/21/17 10:00 04/24/17 10:13 Zantac - PO 150 mg DAILY UDAY Administration Thiamine HCl 100 mg 04/20/17 22:00 04/23/17 21:30 Vitamin B1 - PO 100 mg HS UDAY Administration Tiotropium [place] 1 puff 04/21/17 10:00 04/24/17 10:14 Spiriva - IH 1 puff DAILY UDAY Administration Medication(s) Change(s): Start Vistaril 50 mg po Q 6hrs prn for anxiety Current Side Effect: No Lab tests ordered: Yes Lab tests reviewed: Yes Provider note:: Patient reports that she has been feeling anxious and requests that medication be ordered for it. Anxiolytic properties as well as adverse- effects of Vistaril discussed with patient and she agreed to try it Total face to face time:: 15 Mental Status Exam - Mental Status Exam Alert and Oriented to: Time, Place, Person Cognitive Function: Fair Patient Appearance: Well Groomed Mood: Anxious Affect: Appropriate Patient Behavior: Cooperative Speech Pattern: Clear Voice Loudness: Normal Thought Process: Intact, Goal Oriented Thought Disorder: Not Present Hallucinations: Denies Homicidal Ideation: Denies Insight/Judgement: Fair Sleep: Well Appetite: Good Muscle strength/Tone: Normal Gait/Station: Normal Psychiatric Treatment Plan - Problem List (1) Alcohol dependence Current Visit: Yes (2) Cocaine dependence Current Visit: No Qualifiers: Substance use status: uncomplicated Qualified Code(s): F14.20 - Cocaine dependence, uncomplicated (3) Opioid abuse Current Visit: No (4) Nicotine dependence Current Visit: No Qualifiers: Nicotine product type: cigarettes Substance use status: uncomplicated Qualified Code(s): F17.210 - Nicotine dependence, cigarettes, uncomplicated (5) Paranoid schizophrenia Current Visit: Yes (6) Substance-induced sleep disorder Current Visit: Yes (7) Anemia Current Visit: No Qualifiers: Anemia type: iron deficiency Iron deficiency anemia type: inadequate dietary iron intake Qualified Code(s): D50.8 - Other iron deficiency anemias (8) Asthma Current Visit: No Qualifiers: Asthma severity: mild intermittent Asthma complication type: uncomplicated (9) COPD (chronic obstructive pulmonary disease) Current Visit: No Qualifiers: COPD type: emphysema Emphysema type: other Qualified Code(s): J43.8 - Other emphysema Comment: RECENT EXACERBATION TREATED IN ER, DISCHARGED WITH PREDNISON 40 MG PO X 3 DAYS (10) Chronic low back pain Current Visit: No (11) GERD (gastroesophageal reflux disease) Current Visit: No Qualifiers: Esophagitis presence: without esophagitis Qualified Code(s): K21.9 - Gastro -esophageal reflux disease without esophagitis (12) Hypertension Current Visit: No Qualifiers: Hypertension type: essential hypertension Qualified Code(s): I10 - Essential (primary) hypertension Comment: HYDROCHLOROTHIAZIDE 12.5 MG AMLODIPIN 5 MG (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 2) Monitor progress
[2017-04-24] MEDS: hydrOXYzine PAMOATE 50 MG CAPSULE (FP) PO PRN (17:05)
[2017-04-24] MEDS: QUEtiapine FUMARATE 50 MG TABLET PO SCH (21:29)
[2017-04-24] MEDS: THIAMINE HCL 100 MG TABLET (FP) PO SCH (21:29)
[2017-04-24] MEDS: LIDOCAINE PATCH REMOVAL MC SCH (21:32)
[2017-04-25] MEDS: BUDESONIDE/FORMETEROL FUMARATE 160/4.5 mcg INHALER IH SCH ×2 (10:08→21:25)
[2017-04-25] MEDS: amLODIPine BESYLATE 5 MG TABLET (FP) PO SCH (10:09)
[2017-04-25] MEDS ORDERED: PT OWN MED DRAWER 7, Y5N ONE ×2 (10:09→21:25)
[2017-04-25] MEDS: GABAPENTIN 100 MG CAPSULE (FP) PO SCH ×2 (10:09→21:23)
[2017-04-25] MEDS: PRENATAL VITAMINS W/ FOLIC ACID TABLET (FP) PO SCH (10:09)
[2017-04-25] MEDS: RANITIDINE HCL 150 MG TABLET (FP) PO SCH (10:09)
[2017-04-25] MEDS: LIDOCAINE 5% TOPICAL PATCH TP SCH (10:09)
[2017-04-25] MEDS: ALBUTEROL SO4 2.5/IPRATROPIUM 0.5 INH SOL 3 ML VIAL.NEB. NEB SCH (10:11)
[2017-04-25] MEDS: TIOTROPIUM BROMIDE 18 MCG/INH (DEVICE W/ 5 CAPSULES) IH SCH (10:12)
[2017-04-25] MEDS: NICOTINE 21 MG/24 HOURS TOPICAL PATCH TD SCH (10:12)
[2017-04-25] MEDS ORDERED: ALBUTEROL SO4 2.5/IPRATROPIUM 0.5 INH SOL 3 ML VIAL.NEB. NEB ONE (11:15)
[2017-04-25] MEDS ORDERED: predniSONE 20 MG TABLET (UD) PO ONE (11:35)
--- NOTE | 2017-04-25 12:00 | PN ---
BHS Progress Note Note: pt c/o that d/t her COPD she requires more respiratory tx to assist for her breathing. lungs assessed, CTA, O2 sats 94 on RA duoneb tx is ordered for breathing assist prn prednisone 20mg ordered daily for management as prescribed by her PMD albuterol inh neb tx ordered q4hrs prn pt agreed with treatment plan will reassess if required
[2017-04-25] MEDS: NICOTINE POLACRILEX 2 MG GUM BUC PRN (14:00)
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
[2017-04-25] MEDS: BUPRENORPHINE/NALOXONE 2 MG/0.5 MG FILM PACKET SL SCH (16:03)
[2017-04-25] MEDS: QUEtiapine FUMARATE 50 MG TABLET PO SCH (21:23)
[2017-04-25] MEDS: LIDOCAINE PATCH REMOVAL MC SCH (21:23)
[2017-04-25] MEDS: THIAMINE HCL 100 MG TABLET (FP) PO SCH (21:23)
[2017-04-26] MEDS: GABAPENTIN 100 MG CAPSULE (FP) PO SCH ×2 (09:55→21:43)
[2017-04-26] MEDS: PRENATAL VITAMINS W/ FOLIC ACID TABLET (FP) PO SCH (09:55)
[2017-04-26] MEDS: amLODIPine BESYLATE 5 MG TABLET (FP) PO SCH (09:55)
[2017-04-26] MEDS: predniSONE 20 MG TABLET (UD) PO SCH (09:55)
[2017-04-26] MEDS: RANITIDINE HCL 150 MG TABLET (FP) PO SCH (09:55)
[2017-04-26] MEDS: BUDESONIDE/FORMETEROL FUMARATE 160/4.5 mcg INHALER IH SCH ×2 (09:56→21:43)
[2017-04-26] MEDS: TIOTROPIUM BROMIDE 18 MCG/INH (DEVICE W/ 5 CAPSULES) IH SCH (09:56)
[2017-04-26] MEDS: NICOTINE 21 MG/24 HOURS TOPICAL PATCH TD SCH (09:57)
[2017-04-26] MEDS ORDERED: PT OWN MED DRAWER 7, Y5N ONE (09:57)
[2017-04-26] MEDS: BUPRENORPHINE/NALOXONE 2 MG/0.5 MG FILM PACKET SL SCH (09:57)
[2017-04-26] MEDS: LIDOCAINE 5% TOPICAL PATCH TP SCH (09:57)
[2017-04-26] MEDS: COLLOIDAL OATMEAL 1 BAR EACH TP PRN (10:53)
[2017-04-26] MEDS: VITAMINS A AND D TOPICAL OINTMENT 60 GM TUBE TP SCH ×2 (18:00→23:38)
[2017-04-26] MEDS: QUEtiapine FUMARATE 50 MG TABLET PO SCH (21:43)
[2017-04-26] MEDS: THIAMINE HCL 100 MG TABLET (FP) PO SCH (21:43)
[2017-04-26] MEDS: LIDOCAINE PATCH REMOVAL MC SCH (21:44)
[2017-04-27] MEDS: VITAMINS A AND D TOPICAL OINTMENT 60 GM TUBE TP SCH ×3 (06:51→17:34)
[2017-04-27] MEDS: ALBUTEROL SO4 0.083% IH SOL 2.5 MG/3 ML VIAL.NEB. NEB PRN (07:07)
[2017-04-27] MEDS: NICOTINE 21 MG/24 HOURS TOPICAL PATCH TD SCH (09:55)
[2017-04-27] MEDS: BUDESONIDE/FORMETEROL FUMARATE 160/4.5 mcg INHALER IH SCH ×2 (09:55→21:52)
[2017-04-27] MEDS: TIOTROPIUM BROMIDE 18 MCG/INH (DEVICE W/ 5 CAPSULES) IH SCH (09:55)
[2017-04-27] MEDS: PRENATAL VITAMINS W/ FOLIC ACID TABLET (FP) PO SCH (09:56)
[2017-04-27] MEDS: predniSONE 20 MG TABLET (UD) PO SCH (09:56)
[2017-04-27] MEDS: amLODIPine BESYLATE 5 MG TABLET (FP) PO SCH (09:56)
[2017-04-27] MEDS: GABAPENTIN 100 MG CAPSULE (FP) PO SCH ×2 (09:56→21:50)
[2017-04-27] MEDS: RANITIDINE HCL 150 MG TABLET (FP) PO SCH (09:56)
[2017-04-27] MEDS: BUPRENORPHINE/NALOXONE 2 MG/0.5 MG FILM PACKET SL SCH (09:56)
[2017-04-27] MEDS: LIDOCAINE 5% TOPICAL PATCH TP SCH (09:56)
[2017-04-27] MEDS: hydrOXYzine PAMOATE 50 MG CAPSULE (FP) PO PRN (17:33)
[2017-04-27] MEDS: QUEtiapine FUMARATE 50 MG TABLET PO SCH (21:50)
[2017-04-27] MEDS: THIAMINE HCL 100 MG TABLET (FP) PO SCH (21:50)
[2017-04-27] MEDS: LIDOCAINE PATCH REMOVAL MC SCH (21:51)
[2017-04-28] MEDS: VITAMINS A AND D TOPICAL OINTMENT 60 GM TUBE TP SCH ×5 (00:50→23:01)
[2017-04-28] MEDS: BUDESONIDE/FORMETEROL FUMARATE 160/4.5 mcg INHALER IH SCH ×2 (09:49→21:17)
[2017-04-28] MEDS: TIOTROPIUM BROMIDE 18 MCG/INH (DEVICE W/ 5 CAPSULES) IH SCH (09:49)
[2017-04-28] MEDS: PRENATAL VITAMINS W/ FOLIC ACID TABLET (FP) PO SCH (09:50)
[2017-04-28] MEDS: GABAPENTIN 100 MG CAPSULE (FP) PO SCH ×2 (09:50→21:16)
[2017-04-28] MEDS: predniSONE 20 MG TABLET (UD) PO SCH (09:50)
[2017-04-28] MEDS: amLODIPine BESYLATE 5 MG TABLET (FP) PO SCH (09:50)
[2017-04-28] MEDS: RANITIDINE HCL 150 MG TABLET (FP) PO SCH (09:50)
[2017-04-28] MEDS: COLLOIDAL OATMEAL 1 BAR EACH TP PRN (09:52)
[2017-04-28] MEDS: BUPRENORPHINE/NALOXONE 2 MG/0.5 MG FILM PACKET SL SCH (10:23)
[2017-04-28] MEDS: NICOTINE 21 MG/24 HOURS TOPICAL PATCH TD SCH (10:23)
[2017-04-28] MEDS: LIDOCAINE 5% TOPICAL PATCH TP SCH (10:23)
[2017-04-28] MEDS: QUEtiapine FUMARATE 50 MG TABLET PO SCH (21:16)
[2017-04-28] MEDS: LIDOCAINE PATCH REMOVAL MC SCH (21:16)
[2017-04-28] MEDS: hydrOXYzine PAMOATE 50 MG CAPSULE (FP) PO PRN (21:16)
[2017-04-28] MEDS: THIAMINE HCL 100 MG TABLET (FP) PO SCH (21:17)
[2017-04-29] MEDS: VITAMINS A AND D TOPICAL OINTMENT 60 GM TUBE TP SCH ×4 (06:00→23:39)
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
[2017-04-29] MEDS: TIOTROPIUM BROMIDE 18 MCG/INH (DEVICE W/ 5 CAPSULES) IH SCH (10:40)
[2017-04-29] MEDS: PRENATAL VITAMINS W/ FOLIC ACID TABLET (FP) PO SCH (10:41)
[2017-04-29] MEDS: BUPRENORPHINE/NALOXONE 2 MG/0.5 MG FILM PACKET SL SCH (10:44)
[2017-04-29] MEDS: NICOTINE 21 MG/24 HOURS TOPICAL PATCH TD SCH (10:44)
[2017-04-29] MEDS: GABAPENTIN 100 MG CAPSULE (FP) PO SCH ×2 (10:44→21:37)
[2017-04-29] MEDS: RANITIDINE HCL 150 MG TABLET (FP) PO SCH (10:44)
[2017-04-29] MEDS: LIDOCAINE 5% TOPICAL PATCH TP SCH (10:44)
[2017-04-29] MEDS: predniSONE 20 MG TABLET (UD) PO SCH (10:44)
[2017-04-29] MEDS: amLODIPine BESYLATE 5 MG TABLET (FP) PO SCH (11:30)
[2017-04-29] MEDS: BUDESONIDE/FORMETEROL FUMARATE 160/4.5 mcg INHALER IH SCH ×2 (11:30→21:37)
[2017-04-29] MEDS: NICOTINE 7 MG/24 HOURS TOPICAL PATCH TD SCH (15:06)
[2017-04-29] MEDS: QUEtiapine FUMARATE 50 MG TABLET PO SCH (21:37)
[2017-04-29] MEDS: THIAMINE HCL 100 MG TABLET (FP) PO SCH (21:37)
[2017-04-29] MEDS: hydrOXYzine PAMOATE 50 MG CAPSULE (FP) PO PRN (21:37)
[2017-04-29] MEDS: LIDOCAINE PATCH REMOVAL MC SCH (21:38)
[2017-04-29] MEDS: ACETAMINOPHEN 325 MG TABLET (FP) PO PRN (21:39)
[2017-04-29] MEDS: AMMONIUM LACTATE 12% LOTION 225 GM BOTTLE TP PRN (22:13)
[2017-04-30] MEDS: VITAMINS A AND D TOPICAL OINTMENT 60 GM TUBE TP SCH ×3 (06:00→18:22)
[2017-04-30] MEDS: TIOTROPIUM BROMIDE 18 MCG/INH (DEVICE W/ 5 CAPSULES) IH SCH (09:43)
[2017-04-30] MEDS: NICOTINE 7 MG/24 HOURS TOPICAL PATCH TD SCH (09:43)
[2017-04-30] MEDS: BUDESONIDE/FORMETEROL FUMARATE 160/4.5 mcg INHALER IH SCH ×2 (09:43→21:49)
[2017-04-30] MEDS: BUPRENORPHINE/NALOXONE 2 MG/0.5 MG FILM PACKET SL SCH (09:43)
[2017-04-30] MEDS: amLODIPine BESYLATE 5 MG TABLET (FP) PO SCH (09:44)
[2017-04-30] MEDS: GABAPENTIN 100 MG CAPSULE (FP) PO SCH ×2 (09:44→21:47)
[2017-04-30] MEDS: predniSONE 20 MG TABLET (UD) PO SCH (09:44)
[2017-04-30] MEDS: PRENATAL VITAMINS W/ FOLIC ACID TABLET (FP) PO SCH (09:44)
[2017-04-30] MEDS: RANITIDINE HCL 150 MG TABLET (FP) PO SCH (09:44)
[2017-04-30] MEDS: LIDOCAINE 5% TOPICAL PATCH TP SCH (09:45)
[2017-04-30] MEDS: ACETAMINOPHEN 325 MG TABLET (FP) PO PRN (20:20)
[2017-04-30] MEDS: hydrOXYzine PAMOATE 50 MG CAPSULE (FP) PO PRN (20:20)
[2017-04-30] MEDS: QUEtiapine FUMARATE 50 MG TABLET PO SCH (21:47)
[2017-04-30] MEDS: THIAMINE HCL 100 MG TABLET (FP) PO SCH (21:47)
[2017-04-30] MEDS: LIDOCAINE PATCH REMOVAL MC SCH (21:47)
[2017-05-01] MEDS: VITAMINS A AND D TOPICAL OINTMENT 60 GM TUBE TP SCH ×5 (06:00→23:22)
[2017-05-01] MEDS: COLLOIDAL OATMEAL 1 BAR EACH TP PRN (07:07)
[2017-05-01] MEDS: ALBUTEROL SO4 0.083% IH SOL 2.5 MG/3 ML VIAL.NEB. NEB PRN (07:08)
[2017-05-01] MEDS: BUPRENORPHINE/NALOXONE 2 MG/0.5 MG FILM PACKET SL SCH (09:56)
[2017-05-01] MEDS: TIOTROPIUM BROMIDE 18 MCG/INH (DEVICE W/ 5 CAPSULES) IH SCH (09:56)
[2017-05-01] MEDS: RANITIDINE HCL 150 MG TABLET (FP) PO SCH (09:56)
[2017-05-01] MEDS: NICOTINE 7 MG/24 HOURS TOPICAL PATCH TD SCH (09:56)
[2017-05-01] MEDS: amLODIPine BESYLATE 5 MG TABLET (FP) PO SCH (09:56)
[2017-05-01] MEDS: BUDESONIDE/FORMETEROL FUMARATE 160/4.5 mcg INHALER IH SCH ×2 (09:56→22:06)
[2017-05-01] MEDS: GABAPENTIN 100 MG CAPSULE (FP) PO SCH ×2 (09:56→22:06)
[2017-05-01] MEDS: predniSONE 20 MG TABLET (UD) PO SCH (09:56)
[2017-05-01] MEDS: PRENATAL VITAMINS W/ FOLIC ACID TABLET (FP) PO SCH (09:56)
[2017-05-01] MEDS: LIDOCAINE 5% TOPICAL PATCH TP SCH (09:57)
[2017-05-01] MEDS: IBUPROFEN 400 MG TABLET (FP) PO PRN (12:30)
[2017-05-01] MEDS: hydrOXYzine PAMOATE 50 MG CAPSULE (FP) PO PRN (12:55)
[2017-05-01] MEDS ORDERED: BUPRENORPHINE/NALOXONE 2 MG/0.5 MG FILM PACKET SL ONE (15:31)
[2017-05-01] MEDS ORDERED: BUPRENORPHINE/NALOXONE 2 MG/0.5 MG FILM PACKET SL SCH (15:31)
--- NOTE | 2017-05-01 15:45 | PN ---
BHS Progress Note (SOAP) Subjective: still c/o cravings, tremors, withdrawals would like to increase dose Objective: 05/01/17 15:43 Vital Signs - 24 hr 05/01/17 05/01/17 05/01/17 00:30 03:30 06:50 Temperature 98.1 F Pulse Rate 86 Respiratory 18 18 18 Rate Blood Pressure 142/84 05/01/17 09:30 Temperature Pulse Rate 95 H Respiratory Rate Blood Pressure 130/75 labs reviewed Assessment: 05/01/17 15:43 patient has an appt post discharge, will increase dose to 4mg daily, can have an extra 2mg today for total dose today of 4mg, cont to adjust upwards until patien t is comfortable without cravings.
[2017-05-01] MEDS: LIDOCAINE PATCH REMOVAL MC SCH (22:06)
[2017-05-01] MEDS: QUEtiapine FUMARATE 50 MG TABLET PO SCH (22:08)
[2017-05-01] MEDS: THIAMINE HCL 100 MG TABLET (FP) PO SCH (22:08)
[2017-05-02] MEDS: VITAMINS A AND D TOPICAL OINTMENT 60 GM TUBE TP SCH ×3 (07:10→17:54)
[2017-05-02] MEDS: ALBUTEROL SO4 0.083% IH SOL 2.5 MG/3 ML VIAL.NEB. NEB PRN ×2 (08:08→14:02)
[2017-05-02] MEDS: BUPRENORPHINE/NALOXONE 2 MG/0.5 MG FILM PACKET SL SCH (09:55)
[2017-05-02] MEDS: BUDESONIDE/FORMETEROL FUMARATE 160/4.5 mcg INHALER IH SCH ×2 (09:55→22:23)
[2017-05-02] MEDS: TIOTROPIUM BROMIDE 18 MCG/INH (DEVICE W/ 5 CAPSULES) IH SCH (09:55)
[2017-05-02] MEDS: LIDOCAINE 5% TOPICAL PATCH TP SCH (09:56)
[2017-05-02] MEDS: RANITIDINE HCL 150 MG TABLET (FP) PO SCH (09:56)
[2017-05-02] MEDS: amLODIPine BESYLATE 5 MG TABLET (FP) PO SCH (09:56)
[2017-05-02] MEDS: PRENATAL VITAMINS W/ FOLIC ACID TABLET (FP) PO SCH (09:56)
[2017-05-02] MEDS: predniSONE 20 MG TABLET (UD) PO SCH (09:56)
[2017-05-02] MEDS: NICOTINE 7 MG/24 HOURS TOPICAL PATCH TD SCH (09:56)
[2017-05-02] MEDS: GABAPENTIN 100 MG CAPSULE (FP) PO SCH ×2 (09:56→22:22)
[2017-05-02] MEDS: hydrOXYzine PAMOATE 50 MG CAPSULE (FP) PO PRN ×2 (16:33→22:21)
[2017-05-02] MEDS: QUEtiapine FUMARATE 50 MG TABLET PO SCH (22:21)
[2017-05-02] MEDS: LIDOCAINE PATCH REMOVAL MC SCH (22:22)
[2017-05-02] MEDS: THIAMINE HCL 100 MG TABLET (FP) PO SCH (22:22)
[2017-05-03] MEDS: ACETAMINOPHEN 325 MG TABLET (FP) PO PRN (01:39)
[2017-05-03] MEDS: VITAMINS A AND D TOPICAL OINTMENT 60 GM TUBE TP SCH ×4 (06:00→18:05)
[2017-05-03] MEDS: ALBUTEROL SO4 0.083% IH SOL 2.5 MG/3 ML VIAL.NEB. NEB PRN (07:04)
[2017-05-03] MEDS: NICOTINE 7 MG/24 HOURS TOPICAL PATCH TD SCH (10:05)
[2017-05-03] MEDS: BUPRENORPHINE/NALOXONE 2 MG/0.5 MG FILM PACKET SL SCH (10:05)
[2017-05-03] MEDS: PRENATAL VITAMINS W/ FOLIC ACID TABLET (FP) PO SCH (10:05)
[2017-05-03] MEDS: LIDOCAINE 5% TOPICAL PATCH TP SCH (10:06)
[2017-05-03] MEDS: amLODIPine BESYLATE 5 MG TABLET (FP) PO SCH (10:06)
[2017-05-03] MEDS: predniSONE 20 MG TABLET (UD) PO SCH (10:06)
[2017-05-03] MEDS: BUDESONIDE/FORMETEROL FUMARATE 160/4.5 mcg INHALER IH SCH ×2 (10:06→21:22)
[2017-05-03] MEDS: RANITIDINE HCL 150 MG TABLET (FP) PO SCH (10:06)
[2017-05-03] MEDS: GABAPENTIN 100 MG CAPSULE (FP) PO SCH ×2 (10:06→21:23)
[2017-05-03] MEDS: TIOTROPIUM BROMIDE 18 MCG/INH (DEVICE W/ 5 CAPSULES) IH SCH (10:06)
[2017-05-03] MEDS: NICOTINE POLACRILEX 2 MG GUM BUC PRN (10:09)
[2017-05-03] MEDS: hydrOXYzine PAMOATE 50 MG CAPSULE (FP) PO PRN ×2 (17:59→21:23)
[2017-05-03] MEDS: THIAMINE HCL 100 MG TABLET (FP) PO SCH (21:23)
[2017-05-03] MEDS: QUEtiapine FUMARATE 50 MG TABLET PO SCH (21:23)
[2017-05-03] MEDS: LIDOCAINE PATCH REMOVAL MC SCH (21:58)
[2017-05-04] MEDS: AMMONIUM LACTATE 12% LOTION 225 GM BOTTLE TP PRN (06:34)
[2017-05-04] MEDS: VITAMINS A AND D TOPICAL OINTMENT 60 GM TUBE TP SCH ×4 (06:34→17:29)
[2017-05-04] MEDS: ALBUTEROL SO4 0.083% IH SOL 2.5 MG/3 ML VIAL.NEB. NEB PRN ×2 (06:48→14:19)
[2017-05-04] MEDS: BUDESONIDE/FORMETEROL FUMARATE 160/4.5 mcg INHALER IH SCH ×2 (09:57→21:48)
[2017-05-04] MEDS: BUPRENORPHINE/NALOXONE 2 MG/0.5 MG FILM PACKET SL SCH (09:57)
[2017-05-04] MEDS: predniSONE 20 MG TABLET (UD) PO SCH (09:57)
[2017-05-04] MEDS: amLODIPine BESYLATE 5 MG TABLET (FP) PO SCH (09:57)
[2017-05-04] MEDS: NICOTINE 7 MG/24 HOURS TOPICAL PATCH TD SCH (09:57)
[2017-05-04] MEDS: GABAPENTIN 100 MG CAPSULE (FP) PO SCH ×2 (09:57→21:45)
[2017-05-04] MEDS: LIDOCAINE 5% TOPICAL PATCH TP SCH (09:58)
[2017-05-04] MEDS: TIOTROPIUM BROMIDE 18 MCG/INH (DEVICE W/ 5 CAPSULES) IH SCH (09:58)
[2017-05-04] MEDS: PRENATAL VITAMINS W/ FOLIC ACID TABLET (FP) PO SCH (09:58)
[2017-05-04] MEDS: RANITIDINE HCL 150 MG TABLET (FP) PO SCH (09:58)
[2017-05-04] MEDS: hydrOXYzine PAMOATE 50 MG CAPSULE (FP) PO PRN ×2 (09:59→21:45)
[2017-05-04] MEDS: NICOTINE POLACRILEX 2 MG GUM BUC PRN (10:04)
[2017-05-04] MEDS: COLLOIDAL OATMEAL 1 BAR EACH TP PRN (15:35)
[2017-05-04] MEDS: LIDOCAINE PATCH REMOVAL MC SCH (21:44)
[2017-05-04] MEDS: THIAMINE HCL 100 MG TABLET (FP) PO SCH (21:45)
[2017-05-04] MEDS: QUEtiapine FUMARATE 50 MG TABLET PO SCH (21:46)
[2017-05-05] MEDS: VITAMINS A AND D TOPICAL OINTMENT 60 GM TUBE TP SCH ×4 (06:00→17:29)
[2017-05-05] MEDS: BUDESONIDE/FORMETEROL FUMARATE 160/4.5 mcg INHALER IH SCH ×2 (10:06→21:50)
[2017-05-05] MEDS: NICOTINE 7 MG/24 HOURS TOPICAL PATCH TD SCH (10:06)
[2017-05-05] MEDS: BUPRENORPHINE/NALOXONE 2 MG/0.5 MG FILM PACKET SL SCH (10:06)
[2017-05-05] MEDS: PRENATAL VITAMINS W/ FOLIC ACID TABLET (FP) PO SCH (10:06)
[2017-05-05] MEDS: TIOTROPIUM BROMIDE 18 MCG/INH (DEVICE W/ 5 CAPSULES) IH SCH (10:06)
[2017-05-05] MEDS: predniSONE 20 MG TABLET (UD) PO SCH (10:07)
[2017-05-05] MEDS: amLODIPine BESYLATE 5 MG TABLET (FP) PO SCH (10:07)
[2017-05-05] MEDS: GABAPENTIN 100 MG CAPSULE (FP) PO SCH ×2 (10:07→21:50)
[2017-05-05] MEDS: RANITIDINE HCL 150 MG TABLET (FP) PO SCH (10:07)
[2017-05-05] MEDS: LIDOCAINE 5% TOPICAL PATCH TP SCH (10:07)
[2017-05-05] MEDS: THIAMINE HCL 100 MG TABLET (FP) PO SCH (21:50)
[2017-05-05] MEDS: QUEtiapine FUMARATE 50 MG TABLET PO SCH (21:50)
[2017-05-05] MEDS: LIDOCAINE PATCH REMOVAL MC SCH (21:51)
[2017-05-06] MEDS: VITAMINS A AND D TOPICAL OINTMENT 60 GM TUBE TP SCH ×4 (00:15→18:30)
[2017-05-06] MEDS: amLODIPine BESYLATE 5 MG TABLET (FP) PO SCH (10:14)
[2017-05-06] MEDS: RANITIDINE HCL 150 MG TABLET (FP) PO SCH (10:14)
[2017-05-06] MEDS: predniSONE 20 MG TABLET (UD) PO SCH (10:14)
[2017-05-06] MEDS: BUPRENORPHINE/NALOXONE 2 MG/0.5 MG FILM PACKET SL SCH (10:15)
[2017-05-06] MEDS: BUDESONIDE/FORMETEROL FUMARATE 160/4.5 mcg INHALER IH SCH ×2 (10:15→22:30)
[2017-05-06] MEDS: TIOTROPIUM BROMIDE 18 MCG/INH (DEVICE W/ 5 CAPSULES) IH SCH (10:15)
[2017-05-06] MEDS: NICOTINE 7 MG/24 HOURS TOPICAL PATCH TD SCH (10:15)
[2017-05-06] MEDS: PRENATAL VITAMINS W/ FOLIC ACID TABLET (FP) PO SCH (10:15)
[2017-05-06] MEDS: GABAPENTIN 100 MG CAPSULE (FP) PO SCH ×2 (10:15→21:41)
[2017-05-06] MEDS: LIDOCAINE 5% TOPICAL PATCH TP SCH (10:18)
[2017-05-06] MEDS: ALBUTEROL SO4 0.083% IH SOL 2.5 MG/3 ML VIAL.NEB. NEB PRN (10:47)
[2017-05-06] MEDS: hydrOXYzine PAMOATE 50 MG CAPSULE (FP) PO PRN ×2 (17:23→21:43)
[2017-05-06] MEDS: THIAMINE HCL 100 MG TABLET (FP) PO SCH (21:41)
[2017-05-06] MEDS: QUEtiapine FUMARATE 50 MG TABLET PO SCH (21:41)
[2017-05-06] MEDS: LIDOCAINE PATCH REMOVAL MC SCH (22:30)
[2017-05-07] MEDS: VITAMINS A AND D TOPICAL OINTMENT 60 GM TUBE TP SCH ×4 (00:25→18:00)
[2017-05-07] MEDS: predniSONE 20 MG TABLET (UD) PO SCH (10:21)
[2017-05-07] MEDS: LIDOCAINE 5% TOPICAL PATCH TP SCH (10:21)
[2017-05-07] MEDS: TIOTROPIUM BROMIDE 18 MCG/INH (DEVICE W/ 5 CAPSULES) IH SCH (10:37)
[2017-05-07] MEDS: hydrOXYzine PAMOATE 50 MG CAPSULE (FP) PO PRN ×3 (10:38→23:00)
[2017-05-07] MEDS: PRENATAL VITAMINS W/ FOLIC ACID TABLET (FP) PO SCH (10:38)
[2017-05-07] MEDS: GABAPENTIN 100 MG CAPSULE (FP) PO SCH ×2 (10:38→21:39)
[2017-05-07] MEDS: amLODIPine BESYLATE 5 MG TABLET (FP) PO SCH (10:38)
[2017-05-07] MEDS: RANITIDINE HCL 150 MG TABLET (FP) PO SCH (10:38)
[2017-05-07] MEDS: NICOTINE 7 MG/24 HOURS TOPICAL PATCH TD SCH (10:39)
[2017-05-07] MEDS: BUDESONIDE/FORMETEROL FUMARATE 160/4.5 mcg INHALER IH SCH ×2 (10:39→21:40)
[2017-05-07] MEDS: BUPRENORPHINE/NALOXONE 2 MG/0.5 MG FILM PACKET SL SCH (10:39)
--- NOTE | 2017-05-07 15:13 | PN ---
Psychiatric Progress Note Vital Signs: Vital Signs Period Temp Pulse Resp BP Sys/Avila Pulse Ox Last 24 Hr 98.8 F 84-90 18-18 143-146/80-83 Date of Session: 05/07/17 Chief Complaint:: Discharge Note HPI: Patient addressing Alcohol and Cocaine Dependence , Opiod Abuse comorbid with Nicotine Dependence, Paranoid Schizophrenia and Substance-induced Sleep Disorder ROS: Anemia, Asthma, COPD, GERD, Chronic LBP, HTN wee medicall managed Current Medications: Active Medications Generic Name Dose Route Start Last Admin Trade Name Freq PRN Reason Stop Dose Admin Acetaminophen 650 mg 04/20/17 16:14 05/03/17 01:39 Tylenol - PO 650 mg Q4H PRN Administration FEVER OR PAIN Al Hydroxide/Mg Hydroxide 30 ml 04/20/17 16:14 Mylanta Oral Suspension - PO Q6H PRN DYSPEPSIA Albuterol Sulfate 2 puff 04/20/17 17:15 04/27/17 18:05 Ventolin Hfa Inhaler - IH 2 puff PRN UDAY Administration Amlodipine Besylate 5 mg 04/21/17 10:00 05/07/17 10:38 Norvasc - PO 5 mg DAILY UDAY Administration Budesonide/Formoterol Fumarate 1 puff 04/20/17 22:00 05/07/17 10:39 Symbicort 160/4.5mcg - IH Not Given BID UDAY Buprenorphine/Naloxone 2 each 05/02/17 10:00 05/07/17 10:39 Suboxone 2mg/0.5mg Sl Film - SL 2 each DAILY UDAY Administration Colloidal Oatmeal 1 applic 04/26/17 07:31 05/04/17 15:35 Aveeno Soap - TP 1 applic DAILY PRN Administration HYGEINE Eucalyptus/Menthol/Phenol/Sorbitol 1 each 04/20/17 16:14 Cepastat Lozenge - MM Q4H PRN SORE THROAT Gabapentin 100 mg 04/20/17 22:00 05/07/17 10:38 Neurontin - PO 100 mg BID UDAY Administration Guaifenesin 10 ml 04/20/17 16:14 Robitussin Dm - PO Q6H PRN COUGH Hydroxyzine Pamoate 50 mg 04/24/17 11:10 05/07/17 10:38 Vistaril - PO 50 mg Q4H PRN Administration ANXIETY Ibuprofen 400 mg 12/09/17 16:14 05/01/17 12:30 Motrin - PO 400 mg Q6H PRN Administration PAIN Lactic Acid 1 applic 04/29/17 14:53 05/04/17 06:34 Lac-Hydrin 12 TP 1 applic BID PRN Administration DRY SKIN Lidocaine 1 patch 04/23/17 10:00 05/07/17 10:21 Lidoderm Patch - TP Not Given DAILY UDAY Loperamide HCl 4 mg 04/20/17 16:14 Imodium - PO Q6H PRN DIARRHEA Magnesium Citrate 300 ml 04/20/17 16:14 Citroma - PO Q48H PRN CONSTIPATION Magnesium Hydroxide 30 ml 04/20/17 16:14 Milk Of Magnesia - PO DAILY PRN CONSTIPATION Miscellaneous 2 each 04/26/17 12:43 05/06/17 22:30 Lidoderm Patch Removal MC 2 each DAILY@2200 UDAY Administration Nicotine 7 mg 04/29/17 15:00 05/07/17 10:39 Nicoderm Patch - TD Not Given DAILY [facility] Nicotine Polacrilex 2 mg 04/20/17 16:14 05/04/17 10:04 Nicorette Gum - BUC 2 mg Q2H PRN Administration NICOTINE REPLACEMENT RX Prednisone 20 mg 04/26/17 10:00 05/07/17 10:21 Deltasone - PO Not Given DAILY [facility] Multivit/Folic Acid/Iron 1 tab 04/21/17 10:00 05/07/17 10:38 Vitamins (Sjr) - PO 1 tab DAILY UDAY Administration Pseudoephedrine/Triprolidine 1 combo 04/20/17 16:14 Actifed - PO TID PRN NASAL CONGESTION Quetiapine Fumarate 150 mg 04/22/17 22:00 05/06/17 21:41 Seroquel - PO 150 mg HS UDAY Administration Ranitidine HCl 150 mg 04/21/17 10:00 05/07/17 10:38 Zantac - PO 150 mg DAILY UDAY Administration Thiamine HCl 100 mg 04/20/17 22:00 05/06/17 21:41 Vitamin B1 - PO 100 mg HS UDAY Administration Tiotropium [place] 1 puff 04/21/17 10:00 05/07/17 10:37 Spiriva - IH 1 puff DAILY UDAY Administration Vitamin A/Vitamin D 1 applic 04/26/17 18:00 12/26/17 12:40 Vitamin A & D Top Oint - TP Not Given Q6HPO UDAY Current Side Effect: No Lab tests ordered: Yes Lab tests reviewed: Yes Provider note:: Patient will complete this program on 05/08/17. She has met her treatment goals and will continue to address her issues in outpatient treatment at [facility]. Told residential mortgage underwriter that from his participation in this program, she has learned the importance having a sober support network in order to maitain abstinence. She responded well to Seroquel 150 mg po HS. Script for 30 days supply of that medication will electronically be transmitted to [facility] in [place]. She is stable for discharge on 05/08/17 Total face to face time:: 35 Mental Status Exam - Mental Status Exam Alert and Oriented to: Time, Place, Person Cognitive Function: Fair Patient Appearance: Well Groomed Mood: Hopeful, Euthymic Affect: Appropriate Patient Behavior: Cooperative Speech Pattern: Clear Voice Loudness: Normal Thought Process: Intact, Goal Oriented Thought Disorder: Not Present Hallucinations: Denies Suicidal Ideation: Denies Insight/Judgement: Fair Sleep: Fair Appetite: Good Muscle strength/Tone: Normal Gait/Station: Normal Psychiatric Treatment Plan - Problem List (1) Alcohol dependence Current Visit: Yes (2) Cocaine dependence Current Visit: No Qualifiers: Substance use status: uncomplicated Qualified Code(s): F14.20 - Cocaine dependence, uncomplicated (3) Opioid abuse Current Visit: No (4) Nicotine dependence Current Visit: No Qualifiers: Nicotine product type: cigarettes Substance use status: uncomplicated Qualified Code(s): F17.210 - Nicotine dependence, cigarettes, uncomplicated (5) Paranoid schizophrenia Current Visit: Yes (6) Substance-induced sleep disorder Current Visit: Yes (7) Anemia Current Visit: No Qualifiers: Anemia type: iron deficiency Iron deficiency anemia type: inadequate dietary iron intake Qualified Code(s): D50.8 - Other iron deficiency anemias (8) Asthma Current Visit: No Qualifiers: Asthma severity: mild intermittent Asthma complication type: uncomplicated (9) COPD (chronic obstructive pulmonary disease) Current Visit: No Qualifiers: COPD type: emphysema Emphysema type: other Qualified Code(s): J43.8 - Other emphysema Comment: RECENT EXACERBATION TREATED IN ER, DISCHARGED WITH PREDNISON 40 MG PO X 3 DAYS (10) Chronic low back pain Current Visit: No (11) GERD (gastroesophageal reflux disease) Current Visit: No Qualifiers: Esophagitis presence: without esophagitis Qualified Code(s): K21.9 - Gastro -esophageal reflux disease without esophagitis (12) Hypertension Current Visit: No Qualifiers: Hypertension type: unspecified Qualified Code(s): I10 - Essential (primary ) hypertension Comment: HYDROCHLOROTHIAZIDE 12.5 MG AMLODIPIN 5 MG (13) Substance-induced anxiety disorder Current Visit: Yes Initial treatment plan: Patient will be discharged tomorrow and referred to [facility] services for outpatient treatment
[2017-05-07] MEDS: THIAMINE HCL 100 MG TABLET (FP) PO SCH (21:39)
[2017-05-07] MEDS: QUEtiapine FUMARATE 50 MG TABLET PO SCH (21:40)
[2017-05-07] MEDS: LIDOCAINE PATCH REMOVAL MC SCH (22:06)
[2017-05-08] MEDS: VITAMINS A AND D TOPICAL OINTMENT 60 GM TUBE TP SCH ×2 (00:14→06:56)
[2017-05-08] MEDS: hydrOXYzine PAMOATE 50 MG CAPSULE (FP) PO PRN (06:56)
[2017-05-08 07:00] VITALS: BP 139/71; PULSE 91; TEMP 98.5
[2017-05-08] MEDS: amLODIPine BESYLATE 5 MG TABLET (FP) PO SCH (09:30)
[2017-05-08] MEDS: PRENATAL VITAMINS W/ FOLIC ACID TABLET (FP) PO SCH (09:30)
[2017-05-08] MEDS: GABAPENTIN 100 MG CAPSULE (FP) PO SCH (09:30)
[2017-05-08] MEDS: RANITIDINE HCL 150 MG TABLET (FP) PO SCH (09:30)
[2017-05-08] MEDS: LIDOCAINE 5% TOPICAL PATCH TP SCH (09:31)
[2017-05-08] MEDS: NICOTINE 7 MG/24 HOURS TOPICAL PATCH TD SCH (09:31)
[2017-05-08] MEDS: TIOTROPIUM BROMIDE 18 MCG/INH (DEVICE W/ 5 CAPSULES) IH SCH (09:31)
[2017-05-08] MEDS: BUPRENORPHINE/NALOXONE 2 MG/0.5 MG FILM PACKET SL SCH (09:31)
[2017-05-08] MEDS: BUDESONIDE/FORMETEROL FUMARATE 160/4.5 mcg INHALER IH SCH (09:32)
[2017-05-08] MEDS: predniSONE 20 MG TABLET (UD) PO SCH (09:32)
[2017-05-08] MEDS ORDERED: PT OWN MED DRAWER 7, Y5N ONE (09:46)
== END 2017-05-08 09:55 | disposition home or self-care (01) | DRG 772 ==
LOC: YASAS 11:57 → Y3W 11:58 → UNDODISIN 04-29 06:40
PROVIDERS: ADMIT Psychiatry & Neurology Psychiatry; ATTEND Psychiatry & Neurology Psychiatry
PROC: HZ42ZZZ Group Counseling for Substance Abuse Treatment, Cognitive-Behavioral (ICD-10-PCS; principal; 2017-04-20)
DX: F10.20 Alcohol dependence, uncomplicated (principal); F14.20 Cocaine dependence, uncomplicated; F11.10 Opioid abuse, uncomplicated; F17.210 Nicotine dependence, cigarettes, uncomplicated; F20.0 Paranoid schizophrenia; F19.24 Other psychoactive substance dependence with psychoactive substance-induced mood disorder; F19.280 Other psychoactive substance dependence with psychoactive substance-induced anxiety disorder; F19.282 Other psychoactive substance dependence with psychoactive substance-induced sleep disorder; I10 Essential (primary) hypertension; D50.8 Other iron deficiency anemias; J45.20 Mild intermittent asthma, uncomplicated; J43.8 Other emphysema; M54.5 Low back pain; G89.29 Other chronic pain; K21.9 Gastro-esophageal reflux disease without esophagitis; E86.0 Dehydration
CPT/HCPCS: 94640

== ENCOUNTER 2017-04-29 06:55 | Emergency (ER) | payer BC ==
[2017-04-29 07:07] VITALS: BP 128/66; PULSE 88; TEMP 97.9; BMI 23.9
--- NOTE | 2017-04-29 07:32 | PDOC ---
History of Present Illness - General Chief Complaint: Blood Pressure Problem Stated Complaint: BLOOD PRESSURE PROBLEM Time Seen by Provider: 04/29/17 07:02 - History of Present Illness Initial Comments: 04/29/17 07:51 THe patient is a 52 year old female with a history of HTN, GERD, alcohol abuse, cocaine abuse, depression who presents from [facility] for evaluation of elevated blood pressure. The patient states that she has been in [facility] for 2 weeks for detox. She states that over the last evening she has been experiencing a lot of anxiety and dreams about her nephew as well as some lightheadedness. She states that her blood pressure was 168/108, however there was no order for her daily amlodipine and decided to present to the ED for evaluation due to concerns. She denies any headache, vision changes, lightheadedness, fevers, chills, SOB, chest pain, abdominal pain, or changes with urination or bowel movements. Past History - Past Medical History Allergies/Adverse Reactions: Allergies Allergy/AdvReac Type Severity Reaction Status Date / Time No Known Allergies Allergy Verified 04/29/17 07:04 Home Medications: Ambulatory Orders Fluticasone Prop 0.05% Nasal [Flonase -] 1 - 2 spray NS BID 01/13/16 Tiotropium [place] [Spiriva] 1 inh PO DAILY 01/13/16 Albuterol Sulfate Inhaler - [Ventolin HFA Inhaler -] 2 inh PO PRN #1 inhaler 12/27 Amlodipine Besylate [Norvasc -] 5 mg PO DAILY #30 tablet 04/19/17 Ranitidine [Zantac -] 150 mg PO DAILY #30 tablet 04/19/17 Acetaminophen [Pain Relief] 650 mg PO PRN 04/29/17 Albuterol 0.083% Nebulizer [place] [Ventolin 0.083%] 1 neb NEB Q4H 04/29/17 Budesonide/Formeterol Fumarate [SYMBICORT 160/4.5mcg -] 1 inh PO BID 04/29/17 Buprenorphine HCl/Naloxone HCl [Buprenorphn-Naloxn 2-0.5 mg Sl] 1 each SL DAILY 04/29/17 Colloidal Oatmeal [Aveeno Bath] 1 each TP PRN 04/29/17 Guaifenesin Dm [Robitussin Dm] 10 ml PO Q6H PRN 04/29/17 Hydroxyzine Pamoate [Vistaril -] 50 mg PO Q4H PRN 04/29/17 Ibuprofen 400 mg PO PRN 04/29/17 Lidocaine 5% Patch [Lidoderm Patch -] 1 patch TP DAILY 04/29/17 Loperamide HCl [Imodium -] 4 mg PO Q6H PRN 04/29/17 Magnesium Hydrox 2400MG/30Ml [Milk of Magnesia -] 30 ml PO ONCE PRN 04/29/17 Menthol/Phenol [Cepastat Lozenge -] 1 each MM Q4H PRN 04/29/17 P-Ephed 60Mg/Triprolidi 2.5MG [Actifed -] 1 combo PO PRN PRN 04/29/17 Prednisone [Deltasone -] 20 mg PO DAILY 04/29/17 Vitamins (Sjr) - 1 tab PO DAILY 04/29/17 Quetiapine Fumarate [Quetiapine Fumarate ER] 150 mg PO HS 04/29/17 Thiamine HCl [B-1] 100 mg PO HS 04/29/17 Vitamin A & D Top Oint - [Vitamin A & D] 1 applic TP Q6HPO 04/29/17 Anemia: Yes Asthma: No Cancer: No Cardiac Disorders: No CVA: No COPD: Yes CHF: No Diabetes: No GI Disorders: No Disorders: No HTN: Yes Hypercholesterolemia: No Kidney Stones: No Liver Disease: No Seizures: No Thyroid Disease: No - Surgical History Abdominal Surgery: No Appendectomy: No Cardiac Surgery: No Cholecystectomy: No Lung Surgery: No Neurologic Surgery: No Orthopedic Surgery: No - Reproductive History PID: No - Suicide/Smoking/Psychosocial Hx Smoking History: Never smoked Have you smoked in the past 12 months: No Number of Cigarettes Smoked Daily: 3 Information on smoking cessation initiated: No 'Breaking Loose' booklet given: 04/16/17 Hx Alcohol Use: No Drug/Substance Use Hx: No Substance Use Type: Alcohol, Cocaine, Opiates Hx Substance Use Treatment: Yes (2 previous inpt detox & one inpt rehab @ [facility]) Review of Systems - Review of Systems Comments:: 04/29/17 07:56 Constitutional: No fevers, chills, fatigue, malaise HEENT: No Rhinorrhea, nasal congestion, visual changes Cardiovascular: No chest pain, syncope, palpitations, lightheadedness Respiratory: No Cough, SOB, Gastrointestinal: No Abdominal pain, Nausea, Vomiting, Constipation, Diarrhea, Melena Genitourinary: No Dysuria, Frequency, Urgency, Hesitancy, Hematuria, Flank pain Musculoskeletal: No Myalgia, arthralgia Skin: No rashes Neurologic: No Headache, Dizziness, Numbness, Weakness, or Tingling Psychiatric: No Hallucinations. No SI or HI *Physical Exam - Vital Signs Last Vital Signs Temp Pulse Resp BP Pulse Ox 97.9 F 88 18 128/66 96 04/29/17 07:05 04/29/17 07:05 04/29/17 07:05 04/29/17 07:05 04/29/17 07:05 - Physical Exam Comments: 04/29/17 07:57 General Appearance: Nourished. No Apparent Distress HEENT: EOMI, WILLARD. No Pharyngeal Erythema, Tonsillar Exudate, Tonsillar Erythema Neck: No Cervical Lymphadenopathy Respiratory/Chest: Lungs Clear, Normal Breath Sounds. No Crackles, Rales, Rhonchi, Wheezing Cardiovascular: Regular Rhythm, Regular Rate. No Murmur, Gallops, Rubs Gastrointestinal/Abdominal: Normal Bowel Sounds, Soft. No Guarding, Rebound, Tenderness Musculoskeletal: No CVA Tenderness Extremity: Normal Capillary Refill Integumentary: Normal Color, Dry, Warm Neurologic: Fully Oriented, Alert, Normal Mood/Affect, Normal Response, Medical Decision Making - Medical Decision Making 04/29/17 07:58 THe patient is a 52 year old female with a history of HTN, GERD, alcohol abuse, cocaine abuse, depression who presents from [facility] for evaluation of elevated blood pressure. Patient's blood pressure is 128/66 here in the ED and she currently denies any complaints. It is unlikely the patient's reported elevated blood pressure is due to withdrawal symptoms given that the patient has been at the detox facility for 2 weeks as well as her physical exam. It is likely her blood pressure elevation was due to increased anxiety throughout the evening. We will give the patient a dose of her blood pressure medication here in the ED and feel comfortable sending the patient back to [facility]. We discussed the plan with the patient who voiced understanding and is agreeable. *DC/Admit/Observation/Transfer Diagnosis at time of Disposition: Hypertension Qualifiers: Hypertension type: unspecified Qualified Code(s): I10 - Essential (primary) hypertension - Discharge Dispostion Disposition: HOME Condition at time of disposition: Improved Admit: No - Referrals - Patient Instructions Printed Discharge Instructions: DI for High Blood Pressure, How to Monitor Your Blood Pressure at Home Additional Instructions: Please return to the ER if you experience concerning or worsening symptoms including headaches, chest pain, or difficulty breathing. You were seen in the ER for high blood pressure. We have given your blood pressure medication here in the ER. Please follow up with your primary care provider to discusses further management of your blood pressure. - Post Discharge Activity
[2017-04-29] MEDS ORDERED: amLODIPine BESYLATE 5 MG TABLET (FP) PO ONE (08:04)
--- NOTE | 2017-04-29 08:14 | PDOC ---
Attending Attestation - Resident Resident Name: Denny Smith - ED Attending Attestation I have performed the following: I have examined & evaluated the patient, The case was reviewed & discussed with the resident, I agree w/resident's findings & plan, Exceptions are as noted - HPI HPI: 04/29/17 08:01 52-year-old female from [facility] due to elevated blood pressure of 170 systolic in the setting of missing her nighttime amlodipine last night. Patient was admittedly anxious, denied any symptoms of end organ injury. - Physicial Exam PE: 04/29/17 08:14 blood pressure normalized at 128 systolic. Patient comfortable seated in stretcher without any complaints at this time Exam is normal - Medical Decision Making 04/29/17 08:15 Patient seen and evaluated with the resident. I agree with the overall evaluation, assessment, and management with the following summary of visit: 52-year-old female who requested transfer for blood pressure evaluation/ medication after she was reportedly unable to obtain it at [facility]. Pt feels fine, has no complaints, and BP normalized. will dose her usual amlodipine no indication for further workup or intervention at this time no evidence of intox/withdrawal can return to [facility] to complete treatment
[2017-04-29] MEDS ORDERED: amLODIPine BESYLATE 5 MG TABLET (FP) ONE (08:16)
== END 2017-04-29 09:06 | disposition home or self-care (01) ==
LOC: JER 06:55
DX: I10 Essential (primary) hypertension (principal); K21.9 Gastro-esophageal reflux disease without esophagitis; F10.10 Alcohol abuse, uncomplicated; F14.10 Cocaine abuse, uncomplicated; F32.9 Major depressive disorder, single episode, unspecified
CPT/HCPCS: 99282-25

== ENCOUNTER 2018-02-08 08:09 | Inpatient (IN) | payer OTHER ==
[2018-02-08 08:39] VITALS: BMI 21.2
--- NOTE | 2018-02-08 08:54 | HP ---
CIWA Score - CIWA Score Nausea/Vomitin Muscle Tremors: 3 Anxiety: 3 Agitation: 2 Paroxysmal Sweats: 1-Minimal Palms Moist Orientation: 0-Oriented Tacttile Disturbances: 1-Very Mild Itch/Numbness Auditory Disturbances: 1-Very Mild Visual Disturbances: 0-None Headache: 2-Mild CIWA-Ar Total Score: 15 Admission ROS BHS - HPI Chief Complaint: this 52 years old female with alcohol dependence,and cocaine,percocet abused, admitted in on 04/08/18 at [facility] for acute exacerbation of copd, discharge for detox 03/10/18 history of htn,copd, syncope alcohol related schizophrenia non compliance weight loss multiple admissions in detox but keep relapsing longest period of siobriety 8 years Allergies/Adverse Reactions: Allergies Allergy/AdvReac Type Severity Reaction Status Date / Time No Known Allergies Allergy Verified 02/08/18 08:43 History of Present Illness: this 52 years old female with alcohol and cocaine dependence and percocet abused for detox as mentioned above, refer from [facility] for alcohol detoxed as mentioned above multiple admissions in the past last treatment 04/16/17 to 04/20/17 detox and 04/20/17 to 05/08/17 rehab Exam Limitations: No Limitations - Ebola screening Have you traveled outside of the country in the last 21 days: No (N) Have you had contact with anyone from an Ebola affected area: No Have you been sick,other than usual withdrawal symptoms: No Do you have a fever: No - Review of Systems Constitutional: Loss of Appetite, Malaise, Night Sweats, Changes in sleep, Weakness, Unintentional Wgt. Loss EENT: reports: Tearing, Nose Congestion Respiratory: reports: No Symptoms reported, Productive cough (history of acute exacerbation of copd admitted at [facility] 05/08/18 to 05/10/18 on prednisone) Cardiac: reports: No Symptoms Reported GI: reports: Diarrhea, Nausea, Vomiting, Abdominal cramping : reports: No Symptoms Reported Musculoskeletal: reports: Back Pain, Muscle Pain Integumentary: reports: Dryness Neuro: reports: Headache, Tremors Endocrine: reports: No Symptoms Reported Hematology: reports: No Symptoms Reported Psychiatric: reports: No Sypmtoms Reported, Judgement Intact, Mood/Affect Appropiate, Orientated x3, Agitated, Anxious (schizophrenia) Patient History - Patient Medical History Hx Anemia: Yes (on iron daily) Hx Asthma: Yes Hx Chronic Obstructive Pulmonary Disease (COPD): Yes (on albutreol and symbicort ) Hx Cancer: No Hx Cardiac Disorders: No Hx Congestive Heart Failure: No Hx Hypertension: Yes (on medications) Hx Hypercholesterolemia: No Hx Pacemaker: No HX Cerebrovascular Accident: No Hx Seizures: No Hx Diabetes: No Hx Gastrointestinal Disorders: No Hx Liver Disease: No Hx Genitourinary Disorders: No Hx Sexually Transmitted Disorders: No Hx Renal Disease (ESRD): No Hx Thyroid Disease: No Hx Human Immunodeficiency Virus (HIV): No (last 04/28 negative) Hx Hepatitis C: No Hx Depression: Yes Hx Suicide Attempt: Yes (overdose 10/28) Hx Bipolar Disorder: No Hx Schizophrenia: Yes (no medications) Other Medical History: no suicidal,no homicidal - Patient Surgical History Past Surgical History: Yes Hx Neurologic Surgery: No Hx Cataract Extraction: No Hx Cardiac Surgery: No Hx Lung Surgery: No Hx Breast Surgery: No Hx Breast Biopsy: No Hx Abdominal Surgery: No Hx Appendectomy: No Hx Cholecystectomy: No Hx Genitourinary Surgery: No Hx Section: Yes (X2 last 25 years) Hx Orthopedic Surgery: No Hx Hysterectomy: No Anesthesia Reaction: No - PPD History Previous Implant?: Yes Documented Results: Negative w/proof Date: 04/18/17 Results: 0 MM PPD to be Administered?: No - Reproductive History Patient is a Female of Child Bearing Age (11 -55 yrs old): Yes Patient : No - Smoking Cessation Smoking history: Former smoker Have you smoked in the past 12 months: No Aproximately how many cigarettes per day: 3 If you are a former smoker, when did you quit?: 10/14/17 Hx Chewing Tobacco Use: No Initiated information on smoking cessation: Yes 'Breaking Loose' booklet given: 02/08/18 - Substance & Tx. History Hx Alcohol Use: Yes Hx Substance Use: Yes Substance Use Type: Alcohol, Cocaine Hx Substance Use Treatment: Yes ([facility] 04/16/17 to 04/20/17 ) - Substances Abused Alcohol Route: Oral Frequency: Daily Amount used: 1 PINT Age of first use: 16 Date of Last Use: 02/08/18 Cocaine Route: Smoking Frequency: Daily Amount used: $150-200 Age of first use: 18 Date of Last Use: 02/08/18 PERCOCET Route: Oral Frequency: Daily Amount used: 4 -5/325MG Age of first use: 46 Date of Last Use: 02/08/18 Family Disease History - Family Disease History Family Disease History: CA: Mother (liver) Admission Physical Exam S - Vital Signs Vital Signs: Vital Signs - 24 hr 02/08/18 08:37 Temperature 98.3 F Pulse Rate 84 Respiratory 18 Rate Blood Pressure 138/76 - Physical General Appearance: Yes: Moderate Distress, Tremorous, Irritable, Sweating, Anxious HEENTM: Yes: Normal ENT Inspection, WILLARD, Pharynx Normal Respiratory: Yes: Lungs Clear, Normal Breath Sounds, No Respiratory Distress Neck: Yes: Within Normal Limits, Supple, Trachea in good position Cardiology: Yes: Within Normal Limits, Regular Rhythm, Regular Rate, S1, S2 Abdominal: Yes: Within Normal Limits, Normal Bowel Sounds, Non Tender, Soft Genitourinary: Yes: Within Normal Limits Back: Yes: Muscle Spasm Musculoskeletal: Yes: full range of Motion, Back pain, Muscle Pain Extremities: Yes: Normal Range of Motion, Tremors Neurological: Yes: land appraiser II-XII NML intact, Alert, Motor Strength 5/5 Integumentary: Yes: Dry Lymphatic: Yes: Within Normal Limits - Diagnostic (1) Alcohol dependence with uncomplicated withdrawal Current Visit: No Status: Acute (2) Anemia Current Visit: No Status: Chronic Qualifiers: Anemia type: iron deficiency Iron deficiency anemia type: inadequate dietary iron intake Qualified Code(s): D50.8 - Other iron deficiency anemias (3) Asthma Current Visit: No Status: Chronic Qualifiers: Asthma severity: mild intermittent Asthma complication type: uncomplicated (4) COPD (chronic obstructive pulmonary disease) Current Visit: No Status: Chronic Qualifiers: COPD type: emphysema Emphysema type: other Qualified Code(s): J43.8 - Other emphysema Comment: RECENT EXACERBATION TREATED IN ER, DISCHARGED WITH PREDNISON 40 MG PO X 3 DAYS (5) Chronic low back pain Current Visit: No Status: Chronic (6) Cocaine dependence Current Visit: No Status: Chronic Qualifiers: Substance use status: uncomplicated Qualified Code(s): F14.20 - Cocaine dependence, uncomplicated (7) Hypertension Current Visit: No Status: Chronic Qualifiers: Hypertension type: unspecified Qualified Code(s): I10 - Essential (primary ) hypertension Comment: HYDROCHLOROTHIAZIDE 12.5 MG AMLODIPIN 5 MG (8) Nicotine dependence Current Visit: No Status: Chronic Qualifiers: Nicotine product type: cigarettes Substance use status: uncomplicated Qualified Code(s): F17.210 - Nicotine dependence, cigarettes, uncomplicated (9) Schizophrenia Current Visit: No Status: Chronic (10) Weight loss Current Visit: Yes Status: Acute (11) Acute bronchitis Current Visit: Yes Status: Acute Cleared for Admission BHS - Detox or Rehab S Level of Care: Medically Managed Detox Regimen/Protocol: Librium S Breath Alcohol Content Breath Alcohol Content: 0.25 Urine Pregancy Test - Result Urine Test Results: Negative- NO Line Present Urine Drug Screen - Results Drug Screen Negative: No Urine Drug Screen Results: ISACC-Cocaine
[2018-02-08] MEDS ORDERED: MAG HYDROX/AL HYDROX/SIMETH 30 ML UNIT-DOSE CUP PO PRN (09:16)
[2018-02-08] MEDS ORDERED: LOPERAMIDE HCL 2 MG CAPSULE PO PRN (09:16)
[2018-02-08] MEDS ORDERED: MAGNESIUM HYDROX 2400MG/30ML ORAL SUSPENSION 30 ML CUP PO PRN (09:16)
[2018-02-08] MEDS ORDERED: MAGNESIUM CITRATE 300 ML BOTTLE PO PRN (09:16)
[2018-02-08] MEDS ORDERED: P-EPHED 60MG/TRIPROLIDI 2.5MG TABLET PO PRN (09:16)
[2018-02-08] MEDS ORDERED: chlordiazePOXIDE HCL 25 MG CAPSULE PO PRN (09:16)
[2018-02-08] MEDS ORDERED: MENTHOL/PHENOL 1 EACH UD MM PRN (09:16)
[2018-02-08] MEDS ORDERED: ALBUTEROL SO4 8 GM HFA INHALER IH PRN (09:19)
[2018-02-08] MEDS ORDERED: ALBUTEROL SO4 2.5/IPRATROPIUM 0.5 INH SOL 3 ML VIAL.NEB. NEB PRN (09:22)
[2018-02-08] MEDS: FERROUS SO4 325 MG TABLET (FP) PO SCH (10:52)
[2018-02-08] MEDS: chlordiazePOXIDE HCL 25 MG CAPSULE PO SCH ×3 (10:52→22:45)
[2018-02-08] MEDS: LISINOPRIL 5 MG TABLET (FP) PO SCH (10:52)
[2018-02-08] MEDS: predniSONE 20 MG TABLET (UD) PO SCH (10:53)
[2018-02-08] MEDS: amLODIPine BESYLATE 5 MG TABLET (FP) PO SCH (10:53)
[2018-02-08] MEDS: PRENATAL VITAMINS W/ FOLIC ACID TABLET (FP) PO SCH (10:53)
[2018-02-08] MEDS: TIOTROPIUM BROMIDE 2.5 MCG (SPIRIVA) RESPIMAT INHALER IH SCH (14:09)
[2018-02-08] MEDS: BUDESONIDE/FORMETEROL FUMARATE 160/4.5 mcg INHALER IH SCH ×2 (14:09→22:45)
[2018-02-08] MEDS: AMOXICILLIN 500 MG CAPSULE (FP) PO SCH ×2 (14:12→22:44)
--- NOTE | 2018-02-08 16:04 | CONSULT ---
[facility] Psychiatric Consult - Data Date of interview: 02/08/18 Admission source: [facility] Identifying data: This is one of multiple psychiatric admissions to [facility] for this 52 y/o AA female self-referred for detoxification treatment (alcohol, crack/cocaine,opiate). Admitted to [address] [place] [address].Patient is single,a mother of two, domiciled,unemployed and supported by relatives. Substance Abuse History: Discussed with the patient in this session.Details in the current [facility] report as follows : Smoking history: Former smoker. Have you smoked in the past 12 months: No. Aproximately how many cigarettes per day: 3. If you are a former smoker, when did you quit?: 10/14/17. Hx Chewing Tobacco Use: No. Initiated information on smoking cessation: Yes. 'Breaking Loose' booklet given: 02/08/18. - Substance & Tx. History. Hx Alcohol Use: Yes. Hx Substance Use: Yes. Substance Use Type: Alcohol, Cocaine. Hx Substance Use Treatment: Yes ([facility] 04/16/17 to 04/20/17 ). - Substances Abused. Alcohol. Route: Oral. Frequency: Daily. Amount used: 1 PINT. Age of first use: 16. Date of Last Use: 02/08/18. Cocaine. Route: Smoking. Frequency: Daily. Amount used: $150-200. Age of first use: 18. Date of Last Use: 02/08/18. PERCOCET. Route: Oral. Frequency: Daily. Amount used: 4 -5/325MG. Age of first use: 46. Date of Last Use: 02/08/18 Medical History: Arthritis,anemia,chronic lumbar pain,hypertension,GERD, bronchial asthma and a history of two sections. Psychiatric History: Patient admits to a history of multiple psychiatric hospitalizations (in [place]) but none in recent years (last committed about 10 years ago). Onset of psychiatric disturbances dates back to age 16 ( persecutory delusions,auditory hallucinations).Diagnosed with Paranoid Schizophrenia.Ms Mejia reports past maintenance with quetiapine. However, she indicates, in this interview, that " haldol is my best medication,the one that really keeps me controlled and functioning ". Sporadic evaluations at local [facility] emergenj settings in past few months.Patient informs that she usually gets medications refills from primary care providers. States that she is known to the [facility] OPD clinic in the [place] where she currently sees a psychiatrist.Questionable historian in view of absence of pharmacy claims to corroborate self-report of sustained OPD care. Patient admits to a remote history of suicide attempts, " a few times " via overdose with medications. Physical/Sexual Abuse/Trauma History: Patient denies. Additional Comment: Urine Drug Screen Results: ISACC-Cocaine.Noted. Mental Status Exam - Mental Status Exam Alert and Oriented to: Time, Place, Person Cognitive Function: Good Patient Appearance: Well Groomed (short stature,petite,thin habitus) Mood: Withdrawn, Anxious, Hopeful Affect: Mood Congruent Patient Behavior: Fatigued, Appropriate, Cooperative Speech Pattern: Clear, Appropriate Voice Loudness: Normal Thought Process: Goal Oriented Thought Disorder: Not Present Hallucinations: Denies (none at time of this examination but heard a few days ago prior to this [facility] visit) Suicidal Ideation: Denies Homicidal Ideation: Denies Insight/Judgement: Fair (wants to get back on haloperidol + cogentin to prevent decompensation) Sleep: Poorly, Difficulty falling asleep Appetite: Fair, Weight loss Muscle strength/Tone: Normal Gait/Station: Normal Psychiatric Findings - Problem List ([place] 1, 2,3) (1) Alcohol dependence with uncomplicated withdrawal Current Visit: Yes Status: Acute (2) Opiate dependence Current Visit: Yes Status: Chronic Qualifiers: Substance use status: uncomplicated Qualified Code(s): F11.20 - Opioid dependence, uncomplicated Comment: Self-report.Substance not present in tox screen on this admission. (3) Cocaine dependence Current Visit: Yes Status: Acute Qualifiers: Substance use status: uncomplicated Qualified Code(s): F14.20 - Cocaine dependence, uncomplicated (4) Nicotine dependence Current Visit: Yes Status: Acute Qualifiers: Nicotine product type: cigarettes Substance use status: uncomplicated Qualified Code(s): F17.210 - Nicotine dependence, cigarettes, uncomplicated (5) Paranoid schizophrenia Current Visit: Yes Status: Chronic (6) Insomnia Current Visit: Yes Status: Acute (7) Non-compliance Current Visit: Yes Status: Chronic Comment: Neglects OPD care and medications. - Initial Treatment Plan Initial Treatment Plan: Psychoeducation.Sleep hygiene.Detoxification in progress.In response to the patient's wish to resume haloperidol, will initiate treatment with haldol 2 mg po hs + cogentin 0.5 mg po hs (patient insists on low doses).Side effects/benefits of both drugs are discussed with the patient.Made aware, in particular, of risk of extrapyramidal adverse effects, movement disorders,neuroleptic malignant syndrome and anticholinergic issues ( constipation,blurred visionurinary hesitancy).Ms Mejia willfully consented ( verbally) to this plan of care.Observation.
[2018-02-08] MEDS: hydrOXYzine PAMOATE 25 MG CAPSULE (FP) PO PRN (19:28)
[2018-02-08] MEDS: THIAMINE HCL 100 MG TABLET (FP) PO SCH (22:43)
[2018-02-08] MEDS: HALOPERIDOL 1 MG TABLET (FP) PO SCH (22:43)
[2018-02-08] MEDS: BENZTROPINE MESYLATE 1 MG TABLET (FP) PO SCH (22:44)
[2018-02-08] MEDS: guaiFENesin/D-METHORPHAN HB 10 ML UNIT-DOSE CUPS PO PRN (22:45)
[2018-02-08] MEDS: MELATONIN 5 MG TABLETS PO PRN (22:47)
[2018-02-09] MEDS: AMOXICILLIN 500 MG CAPSULE (FP) PO SCH ×3 (06:20→22:13)
[2018-02-09] MEDS: chlordiazePOXIDE HCL 25 MG CAPSULE PO SCH ×4 (06:21→22:13)
[2018-02-09] MEDS: amLODIPine BESYLATE 5 MG TABLET (FP) PO SCH (10:39)
[2018-02-09] MEDS: FERROUS SO4 325 MG TABLET (FP) PO SCH (10:39)
[2018-02-09] MEDS: LISINOPRIL 5 MG TABLET (FP) PO SCH (10:39)
[2018-02-09] MEDS: TIOTROPIUM BROMIDE 2.5 MCG (SPIRIVA) RESPIMAT INHALER IH SCH (10:40)
[2018-02-09] MEDS: predniSONE 20 MG TABLET (UD) PO SCH (10:40)
[2018-02-09] MEDS: BUDESONIDE/FORMETEROL FUMARATE 160/4.5 mcg INHALER IH SCH ×2 (10:40→22:12)
[2018-02-09] MEDS: PRENATAL VITAMINS W/ FOLIC ACID TABLET (FP) PO SCH (10:40)
[2018-02-09 11:14] LABS: HEMATOCRIT 39.2 % (32.4-45.2); HEMOGLOBIN 12.5 GM/dL (10.7-15.3); MCH 30.9 pg (25.7-33.7); MEAN CELL VOLUME 96.5 fl (80-96); MEAN PLT VOLUME 8.7 fl (7.5-11.1); PLATELET COUNT 226 K/MM3 (134-434); RBC 4.06 M/mm3 (3.60-5.2); WHITE BLOOD COUNT 9.7 K/mm3 (4.0-10.0)
[2018-02-09 11:26] LABS: ALBUMIN 2.8 g/dl (3.4-5.0); ALK PHOS 36 U/L (45-117); ANION GAP 7 MMOL/L (8-16); BILIRUBIN,TOTAL 0.3 mg/dL (0.2-1); BLOOD UREA NITROGEN 16 mg/dL (7-18); CALCIUM 8.9 mg/dL (8.5-10.1); CHLORIDE 106 mmol/L (98-107); CO2 29 mmol/L (21-32); CREATININE 0.6 mg/dL (0.55-1.3); GLUCOSE,RANDOM 66 mg/dL (74-106); POTASSIUM 3.9 mmol/L (3.5-5.1); SGOT/AST 12 U/L (15-37); SGPT/ALT 15 U/L (13-61); SODIUM 141 mmol/L (136-145); TOT PROT 5.7 g/dl (6.4-8.2)
--- NOTE | 2018-02-09 12:48 | PN ---
S CIWA - CIWA Score Nausea/Vomitin-Mild Nausea/No Vomiting Muscle Tremors: 3 Anxiety: 2 Agitation: 3 Paroxysmal Sweats: 1-Minimal Palms Moist Orientation: 0-Oriented Tacttile Disturbances: 1-Very Mild Itch/Numbness Auditory Disturbances: 0-None Visual Disturbances: 0-None Headache: 1-Very Mild CIWA-Ar Total Score: 12 BHS Progress Note (SOAP) Subjective: sweat tremor anxiety headache Objective: 02/09/18 12:47 Vital Signs Temperature 97.1 F L 02/09/18 10:00 Pulse Rate 74 02/09/18 10:00 Respiratory Rate 16 02/09/18 10:00 Blood Pressure 118/77 02/09/18 10:00 O2 Sat by Pulse Oximetry (%) Laboratory Last Values WBC 9.7 K/mm3 (4.0-10.0) 02/09/18 07:49 RBC 4.06 M/mm3 (3.60-5.2) 02/09/18 07:49 Hgb 12.5 GM/dL (10.7-15.3) 02/09/18 07:49 Hct 39.2 % (32.4-45.2) 02/09/18 07:49 MCV 96.5 fl (80-96) H 02/09/18 07:49 MCH 30.9 pg (25.7-33.7) 02/09/18 07:49 MCHC 32.0 g/dl (32.0-36.0) 02/09/18 07:49 RDW 14.0 % (11.6-15.6) 02/09/18 07:49 Plt Count 226 K/MM3 (134-434) 02/09/18 07:49 MPV 8.7 fl (7.5-11.1) 02/09/18 07:49 Sodium 141 mmol/L (136-145) 02/09/18 07:49 Potassium 3.9 mmol/L (3.5-5.1) 02/09/18 07:49 Chloride 106 mmol/L (98-107) 02/09/18 07:49 Carbon Dioxide 29 mmol/L (21-32) 02/09/18 07:49 Anion Gap 7 MMOL/L (8-16) L 02/09/18 07:49 BUN 16 mg/dL (7-18) 02/09/18 07:49 Creatinine 0.6 mg/dL (0.55-1.3) 02/09/18 07:49 Creat Clearance w eGFR > 60 (>60) 02/09/18 07:49 Random Glucose 66 mg/dL (74-106) L 02/09/18 07:49 Calcium 8.9 mg/dL (8.5-10.1) 02/09/18 07:49 Total Bilirubin 0.3 mg/dL (0.2-1) 02/09/18 07:49 AST 12 U/L (15-37) L 02/09/18 07:49 ALT 15 U/L (13-61) 02/09/18 07:49 Alkaline Phosphatase 36 U/L (45-117) L 02/09/18 07:49 Total Protein 5.7 g/dl (6.4-8.2) L 02/09/18 07:49 Albumin 2.8 g/dl (3.4-5.0) L 02/09/18 07:49 RPR Titer Nonreactive (NONREACTIVE) 02/09/18 07:49 lab noted Assessment: 02/09/18 12:47 withdrawal sx Plan: continue detox
[2018-02-09] MEDS: BENZTROPINE MESYLATE 1 MG TABLET (FP) PO SCH (22:12)
[2018-02-09] MEDS: HALOPERIDOL 1 MG TABLET (FP) PO SCH (22:12)
[2018-02-09] MEDS: THIAMINE HCL 100 MG TABLET (FP) PO SCH (22:13)
[2018-02-09] MEDS: guaiFENesin/D-METHORPHAN HB 10 ML UNIT-DOSE CUPS PO PRN (22:13)
[2018-02-09] MEDS: MELATONIN 5 MG TABLETS PO PRN (22:14)
[2018-02-10] MEDS: AMOXICILLIN 500 MG CAPSULE (FP) PO SCH ×3 (05:49→22:29)
[2018-02-10] MEDS: chlordiazePOXIDE HCL 25 MG CAPSULE PO SCH (05:49)
--- NOTE | 2018-02-10 10:17 | PN ---
Psychiatric Progress Note Vital Signs: Vital Signs Period Temp Pulse Resp BP Sys/Avila Pulse Ox Last 24 Hr 97.7 F-98.6 F 78-100 16-20 113-130/55-74 Date of Session: 02/10/18 Chief Complaint:: " Can i get an increase in haldol." HPI: Patient admitted to for alcohol,crack/cocaine,opiate. ROS: Arthritis,anemia,chronic lumbar pain,hypertension,GERD,bronchial asthma and a history of two sections. Current Medications: Active Medications Generic Name Dose Route Start Last Admin Trade Name Freq PRN Reason Stop Dose Admin Acetaminophen 650 mg 02/08/18 09:16 Tylenol - PO Q4H PRN FEVER Al Hydroxide/Mg Hydroxide 30 ml 02/08/18 09:16 Mylanta Oral Suspension - PO Q6H PRN DYSPEPSIA Albuterol Sulfate 2 puff 02/08/18 09:19 Ventolin Hfa Inhaler - IH Q4H PRN ASTHMA Albuterol/Ipratropium 1 amp 02/08/18 09:22 Duoneb - NEB Q6H PRN SHORTNESS OF BREATH Amlodipine Besylate 5 mg 02/08/18 10:00 02/09/18 10:39 Norvasc - PO 5 mg DAILY UDAY Administration Amoxicillin 500 mg 02/08/18 14:00 02/10/18 05:49 Amoxicillin - PO 500 mg TID UDAY Administration Benztropine Mesylate 0.5 mg 02/08/18 22:00 02/09/18 22:12 Cogentin - PO 0.5 mg HS UDAY Administration Budesonide/Formoterol Fumarate 2 puff 02/08/18 10:00 02/09/18 22:12 Symbicort 160/4.5mcg - IH 2 puff BID UDAY Administration Chlordiazepoxide HCl 15 mg 02/10/18 11:00 Librium - PO 02/11/18 05:01 [id number] UDAY Chlordiazepoxide HCl 25 mg 02/08/18 09:16 Librium - PO 02/11/18 09:15 Q4H PRN WITHDRAWAL(CONT SUBST) Chlordiazepoxide HCl 10 mg 02/11/18 11:00 Librium - PO 02/12/18 05:01 [id number]-UHB UDAY Eucalyptus/Menthol/Phenol/Sorbitol 1 each 02/08/18 09:16 Cepastat Lozenge - MM Q4H PRN SORE THROAT Ferrous Sulfate 325 mg 02/08/18 10:00 02/09/18 10:39 Feosol - PO 325 mg DAILY UDAY Administration Guaifenesin 10 ml 02/08/18 09:16 02/09/18 22:13 Robitussin Dm - PO 10 ml Q6H PRN Administration COUGH Haloperidol 2 mg 02/08/18 22:00 02/09/18 22:12 Haldol - PO 2 mg HS UDAY Administration Hydroxyzine Pamoate 25 mg 02/08/18 09:16 02/08/18 19:28 Vistaril - PO 25 mg Q4H PRN Administration AGITATION Ibuprofen 400 mg 02/08/18 09:16 Motrin - PO Q6H PRN PAIN LEVEL 4-6 Lisinopril 5 mg 02/08/18 10:00 02/09/18 10:39 Prinivil PO 5 mg DAILY UDAY Administration Loperamide HCl 4 mg 02/08/18 09:16 Imodium - PO Q6H PRN DIARRHEA Magnesium Citrate 300 ml 02/08/18 09:16 Citroma - PO Q48H PRN CONSTIPATION Magnesium Hydroxide 30 ml 02/08/18 09:16 Milk Of Magnesia - PO DAILY PRN CONSTIPATION Melatonin 5 mg 02/08/18 22:00 02/09/18 22:14 Melatonin PO 5 mg HS PRN Administration INSOMNIA Prednisone 20 mg 02/08/18 10:00 02/09/18 10:40 Deltasone - PO 02/13/18 10:00 20 mg DAILY UDAY Administration Multivit/Folic Acid/Iron 1 tab 02/08/18 10:00 02/09/18 10:40 Vitamins (Sjr) - PO 1 tab DAILY UDAY Administration Pseudoephedrine/Triprolidine 1 combo 02/08/18 09:16 Actifed - PO TID PRN NASAL CONGESTION Thiamine HCl 100 mg 02/08/18 22:00 02/09/18 22:13 Vitamin B1 - PO 100 mg HS UDAY Administration Tiotropium [place] 2 puff 02/08/18 10:00 02/09/18 10:40 Spiriva Respimat IH 2 puff DAILY UDAY Administration Medication(s) Change(s): Yes. Will increase haldol 2mg to 5mg qhs. Current Side Effect: No Lab tests ordered: No Lab tests reviewed: Yes Provider note:: Chart reviewed. Dr. Davenport note read and appreciated. Patient with a history of schizophrenia and nonadherence to medications. She was restarted on haldol 2mg on 02/08/18. She reports improved mood and decrease irritability. She is requesting an increase in haldol dose. States she has been on higher doses in the past. Will increase haldol to 5mg qhs and cogentin to 1mg qhs. She is made aware of the risk of extrapyramidal adverse effects, movement disorders,neuroleptic malignant syndrome. Verbal consent given. Total face to face time:: 25 Mental Status Exam - Mental Status Exam Alert and Oriented to: Time, Place, Person Cognitive Function: Good Patient Appearance: Well Groomed Mood: Euthymic Affect: Mood Congruent Patient Behavior: Appropriate, Cooperative Speech Pattern: Appropriate Voice Loudness: Normal Thought Process: Intact, Goal Oriented Thought Disorder: Not Present Hallucinations: Denies Suicidal Ideation: Denies Homicidal Ideation: Denies Insight/Judgement: Poor Sleep: Fair Muscle strength/Tone: Normal Gait/Station: Normal Psychiatric Treatment Plan - Problem List (1) Alcohol dependence with uncomplicated withdrawal Current Visit: Yes (2) Cocaine dependence Current Visit: Yes Qualifiers: Substance use status: uncomplicated Qualified Code(s): F14.20 - Cocaine dependence, uncomplicated (3) Insomnia Current Visit: Yes (4) Nicotine dependence Current Visit: Yes Qualifiers: Nicotine product type: cigarettes Substance use status: uncomplicated Qualified Code(s): F17.210 - Nicotine dependence, cigarettes, uncomplicated (5) Non-compliance Current Visit: Yes Comment: Neglects OPD care and medications. (6) Opiate dependence Current Visit: Yes Qualifiers: Substance use status: uncomplicated Qualified Code(s): F11.20 - Opioid dependence, uncomplicated Comment: Self-report.Substance not present in tox screen on this admission. (7) Paranoid schizophrenia Current Visit: Yes
[2018-02-10] MEDS: amLODIPine BESYLATE 5 MG TABLET (FP) PO SCH (10:39)
[2018-02-10] MEDS: BUDESONIDE/FORMETEROL FUMARATE 160/4.5 mcg INHALER IH SCH ×2 (10:39→22:53)
[2018-02-10] MEDS: LISINOPRIL 5 MG TABLET (FP) PO SCH (10:39)
[2018-02-10] MEDS: predniSONE 20 MG TABLET (UD) PO SCH (10:39)
[2018-02-10] MEDS: FERROUS SO4 325 MG TABLET (FP) PO SCH (10:39)
[2018-02-10] MEDS: chlordiazePOXIDE 5 MG CAPSULE PO SCH ×3 (10:40→22:28)
[2018-02-10] MEDS: PRENATAL VITAMINS W/ FOLIC ACID TABLET (FP) PO SCH (10:40)
[2018-02-10] MEDS: TIOTROPIUM BROMIDE 2.5 MCG (SPIRIVA) RESPIMAT INHALER IH SCH (10:40)
[2018-02-10] MEDS: ACETAMINOPHEN 325 MG TABLET (FP) PO PRN ×2 (10:40→14:17)
--- NOTE | 2018-02-10 12:08 | PN ---
S CIWA - CIWA Score Nausea/Vomitin-No Nausea/No Vomiting Muscle Tremors: 4-Moderate,w/Arms Extend Anxiety: 3 Agitation: 3 Paroxysmal Sweats: 2 Orientation: 0-Oriented Tacttile Disturbances: 0-None Auditory Disturbances: 0-None Visual Disturbances: 0-None Headache: 0-None Present CIWA-Ar Total Score: 12 [facility] Progress Note (SOAP) Subjective: sweats shakes interrupted sleep Objective: 02/10/18 12:04 Vital Signs Temperature 97.7 F 02/10/18 09:29 Pulse Rate 100 H 02/10/18 09:29 Respiratory Rate 18 02/10/18 09:29 Blood Pressure 119/55 L 02/10/18 09:29 O2 Sat by Pulse Oximetry (%) Laboratory Tests 02/09/18 02/09/18 02/09/18 07:49 07:49 07:49 WBC 9.7 RBC 4.06 Hgb 12.5 Hct 39.2 MCV 96.5 H MCH 30.9 MCHC 32.0 RDW 14.0 Plt Count 226 MPV 8.7 Sodium 141 Potassium 3.9 Chloride 106 Carbon Dioxide 29 Anion Gap 7 L BUN 16 Creatinine 0.6 Creat Clearance w eGFR > 60 Random Glucose 66 L Calcium 8.9 Total Bilirubin 0.3 AST 12 L ALT 15 Alkaline Phosphatase 36 L Total Protein 5.7 L Albumin 2.8 L RPR Titer Nonreactive rest of labs pending aaox3 ambulating no acute distress Assessment: 02/10/18 12:07 withdrawal sx Plan: continue detox increase fluids
[2018-02-10] MEDS: IBUPROFEN 400 MG TABLET (FP) PO PRN (18:49)
[2018-02-10] MEDS: guaiFENesin/D-METHORPHAN HB 10 ML UNIT-DOSE CUPS PO PRN (19:41)
[2018-02-10] MEDS: HALOPERIDOL 5 MG TABLET (FP) PO SCH (22:28)
[2018-02-10] MEDS: BENZTROPINE MESYLATE 1 MG TABLET (FP) PO SCH (22:29)
[2018-02-10] MEDS: THIAMINE HCL 100 MG TABLET (FP) PO SCH (22:54)
[2018-02-11] MEDS: chlordiazePOXIDE 5 MG CAPSULE PO SCH (06:00)
[2018-02-11] MEDS: AMOXICILLIN 500 MG CAPSULE (FP) PO SCH ×3 (06:00→22:08)
[2018-02-11] MEDS: TIOTROPIUM BROMIDE 2.5 MCG (SPIRIVA) RESPIMAT INHALER IH SCH (10:48)
[2018-02-11] MEDS: BUDESONIDE/FORMETEROL FUMARATE 160/4.5 mcg INHALER IH SCH ×2 (10:48→22:08)
[2018-02-11] MEDS: FERROUS SO4 325 MG TABLET (FP) PO SCH (10:49)
[2018-02-11] MEDS: chlordiazePOXIDE HCL 10 MG CAPSULE PO SCH ×3 (10:50→22:09)
[2018-02-11] MEDS: PRENATAL VITAMINS W/ FOLIC ACID TABLET (FP) PO SCH (10:50)
[2018-02-11] MEDS: predniSONE 20 MG TABLET (UD) PO SCH (10:50)
[2018-02-11] MEDS: amLODIPine BESYLATE 5 MG TABLET (FP) PO SCH (10:50)
[2018-02-11] MEDS: LISINOPRIL 5 MG TABLET (FP) PO SCH (10:51)
--- NOTE | 2018-02-11 11:09 | EKG ---
Test Reason : Blood Pressure : / mmHG Vent. Rate : 080 BPM Atrial Rate : 080 BPM P-R Int : 146 ms QRS Dur : 092 ms QT Int : 378 ms P-R-T Axes : 075 050 072 degrees QTc Int : 435 ms NORMAL SINUS RHYTHM VOLTAGE CRITERIA FOR LEFT VENTRICULAR HYPERTROPHY NONSPECIFIC ST ABNORMALITY ABNORMAL ECG Confirmed by Rommel Sarkar MD ([id number]) on 02/11/2018 11:09:43 AM Referred By: Confirmed By:Rommel Sarkar MD
[2018-02-11] MEDS ORDERED: LIDOCAINE 5% TOPICAL PATCH TP ONE (12:11)
--- NOTE | 2018-02-11 12:13 | PN ---
[facility] Progress Note (SOAP) Subjective: agitation body aches sweats Objective: 02/11/18 12:12 Vital Signs Temperature 97 F L 02/11/18 06:40 Pulse Rate 82 02/11/18 06:40 Respiratory Rate 16 02/11/18 06:40 Blood Pressure 129/77 02/11/18 06:40 O2 Sat by Pulse Oximetry (%) aaox3 ambulating no acute distress Assessment: 02/11/18 12:13 withdrawal sx Plan: continue detox lidocaine patch d/c in am
[2018-02-11] MEDS ORDERED: COLLOIDAL OATMEAL 1 BAR EACH TP PRN (15:56)
[2018-02-11] MEDS: hydrOXYzine PAMOATE 25 MG CAPSULE (FP) PO PRN (21:00)
[2018-02-11] MEDS ORDERED: LIDOCAINE PATCH REMOVAL MC SCH (22:00)
[2018-02-11] MEDS: BENZTROPINE MESYLATE 1 MG TABLET (FP) PO SCH (22:08)
[2018-02-11] MEDS: THIAMINE HCL 100 MG TABLET (FP) PO SCH (22:09)
[2018-02-11] MEDS: HALOPERIDOL 5 MG TABLET (FP) PO SCH (22:09)
[2018-02-11] MEDS: IBUPROFEN 400 MG TABLET (FP) PO PRN (23:41)
[2018-02-12] MEDS: chlordiazePOXIDE HCL 10 MG CAPSULE PO SCH (05:31)
[2018-02-12] MEDS: AMOXICILLIN 500 MG CAPSULE (FP) PO SCH ×2 (05:31→14:02)
--- NOTE | 2018-02-12 09:29 | DS ---
[facility] Detox Discharge Summary Admission Date: 02/08/18 Discharge Date: 02/12/18 - History Present History: Alcohol Dependence, Cocaine Dependence - Physical Exam Results Vital Signs: Vital Signs Temperature 97.9 F 02/12/18 09:15 Pulse Rate 88 02/12/18 09:15 Respiratory Rate 16 02/12/18 09:15 Blood Pressure 119/61 02/12/18 09:15 O2 Sat by Pulse Oximetry (%) - Treatment Hospital Course: Detox Protocol Followed, Detoxed Safely, Responded well, Discharged Condition Good, Rehab Referral Accepted - Medication Discharge Medications: Ambulatory Orders Albuterol Sulfate Inhaler - [Ventolin HFA Inhaler -] 2 inh PO PRN #1 inhaler Amlodipine Besylate [Norvasc -] 5 mg PO DAILY #30 tablet 05/08/17 Budesonide/Formeterol Fumarate [SYMBICORT 160/4.5mcg -] 1 puff IH BID #1 inhaler 05/08/17 Lisinopril 5 mg PO DAILY 02/08/18 - AMA Did Patient Leave Against Medical Advice: No (out patient rehab)
[2018-02-12] MEDS ORDERED: LIDOCAINE 5% TOPICAL PATCH TP SCH (10:00)
[2018-02-12] MEDS: predniSONE 20 MG TABLET (UD) PO SCH (10:48)
[2018-02-12] MEDS: PRENATAL VITAMINS W/ FOLIC ACID TABLET (FP) PO SCH (10:48)
[2018-02-12] MEDS: amLODIPine BESYLATE 5 MG TABLET (FP) PO SCH (10:48)
[2018-02-12] MEDS: FERROUS SO4 325 MG TABLET (FP) PO SCH (10:48)
[2018-02-12] MEDS: LISINOPRIL 5 MG TABLET (FP) PO SCH (10:48)
[2018-02-12] MEDS: BUDESONIDE/FORMETEROL FUMARATE 160/4.5 mcg INHALER IH SCH (10:49)
[2018-02-12] MEDS: TIOTROPIUM BROMIDE 2.5 MCG (SPIRIVA) RESPIMAT INHALER IH SCH (10:49)
[2018-02-12 13:13] VITALS: BP 111/51; PULSE 95; TEMP 97.7
== END 2018-02-12 14:32 | disposition home or self-care (01) | DRG 773 ==
LOC: YASAS 08:09 → Y6N 08:49
PROC: HZ2ZZZZ Detoxification Services for Substance Abuse Treatment (ICD-10-PCS; principal; 2018-02-08)
DX: F10.230 Alcohol dependence with withdrawal, uncomplicated (principal); F11.20 Opioid dependence, uncomplicated; F14.20 Cocaine dependence, uncomplicated; F17.210 Nicotine dependence, cigarettes, uncomplicated; F20.9 Schizophrenia, unspecified; I10 Essential (primary) hypertension; G47.00 Insomnia, unspecified; D50.9 Iron deficiency anemia, unspecified; J45.20 Mild intermittent asthma, uncomplicated; J43.8 Other emphysema; M54.5 Low back pain; G89.29 Other chronic pain; J20.9 Acute bronchitis, unspecified; Z91.14 Patient's other noncompliance with medication regimen; Z87.898 Personal history of other specified conditions; Z91.5 Personal history of self-harm
CPT/HCPCS: 36415; 80053; 85027; 86593; 93005; 93010; 94640; J7620